=== PATIENT | male | born 1955 | race Caucasian/White ===

== ENCOUNTER 2017-08-10 13:19 | Inpatient (IN) | payer BC, OTHER ==
[2017-08-10] VITALS (13 sets, daily range): BP systolic 101–120; BP diastolic 59–75; PULSE 99–110; TEMP 36.5–37.9; O2SAT 95–100; Ht 180.3 cm; Wt 76.1 kg
[~2017-08-10] VITALS: Ht 180.3 cm; Wt 76.1 kg
[2017-08-10] MEDS ORDERED: SODIUM CHLORIDE 0.9% 1000ML 1,000 ML IV STA (13:51)
--- NOTE | 2017-08-10 13:53 | EMERGENCY ROOM VISIT NOTE ---
History Report prepared by Anna: Eamon Hernandez Under the Supervision of: Dr. Emory Hardy M.D. First contact with patient: 13:33 Chief Complaint: GI ASSESSMENT Stated Complaint: BLACK STOOL, VOMIT, WEAK,ACHES, LIGHT HEADED History of Present Illness The patient is a 62 year old male who presents to the Emergency Room with complaints of black/tarry stools and coffee ground emesis that the patient first noticed a couple of days ago. The patient denies any further abdominal pain, fevers, chills, or chest pains. The patient sees his Primary Care Physician regularly and has no diagnosed medical conditions. He is not on any anticoagulation therapy. The patient does drink a few times a week, and consumes 2-7 beers when he does. He has no history of Cirrhosis. 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 A total of ten systems were reviewed and were otherwise negative. Past Medical & Surgical Medical Problems: (1) Dyslipidemia (2) Osteoarthritis (3) Tobacco use disorder Surgical Problems: (1) S/P rotator cuff repair (2) S/P rotator cuff repair (3) Thumb amputation status Social History Problems: (1) Right shoulder injury Family History Diabetes mellitus Hypertension Social History Smoking Status: Current Every Day Smoker Housing Status: lives alone Occupation Status: unemployed Current/Historical Medications No Active Prescriptions or Reported Meds Allergies Coded Allergies: No Known Allergies (Unverified , 08/10/17) Physical Exam Vital Signs Date Time Temp Pulse Resp B/P (MAP) Pulse Ox O2 Delivery O2 Flow Rate FiO2 08/10/17 16:10 37.3 99 16 115/72 100 Room Air 08/10/17 16:10 37.3 99 16 115/72 100 08/10/17 15:45 37.4 101 16 106/65 100 08/10/17 15:15 101 20 106/66 100 Room Air 08/10/17 13:43 99 Room Air 08/10/17 13:43 105 08/10/17 13:28 36.8 112 16 80/54 98 Room Air Physical Exam GENERAL: Awake, alert, fatigued-appearing, in no distress HENT: Normocephalic, atraumatic. Patient has dry cracked mucous membranes. Black -tinged tongue. EYES: Normal conjunctiva. Sclera non-icteric. NECK: Supple. No nuchal rigidity. FROM. No JVD. RESPIRATORY: Clear to auscultation. CARDIAC: Sinus tachycardic rate, with normal rhythm. Extremities warm and well perfused. Pulses equal. ABDOMEN: Soft, non-distended. No tenderness to palpation. No rebound or guarding. No masses. RECTAL: Deferred. MUSCULOSKELETAL: Chest examination reveals no tenderness. The back is symmetrical on inspection without obvious abnormality. There is no CVA tenderness to palpation. No joint edema. LOWER EXTREMITIES: Calves are equal size bilaterally and non-tender. No edema. No discoloration. NEURO: Normal sensorium. No sensory or motor deficits noted. SKIN: No rash or jaundice noted. Medical Decision & Procedures ER Provider Diagnostic Interpretation: Radiology results as stated below per my review and radiologist interpretation: ABD/PELVIS IV CONTRAST ONLY CLINICAL HISTORY: 62 years-old Male presenting with melena, abd pain, diffuse abdominal pain, nausea and vomiting. TECHNIQUE: Multidetector CT of the abdomen and pelvis was performed after the administration of intravenous contrast. IV contrast: 119 mL of Optiray 320. A dose lowering technique was used consistent with the principles of ALARA (as low as reasonably achievable). COMPARISON: None. CT DOSE (mGy.cm): The estimated cumulative dose is 376.50 mGy.cm. FINDINGS: Scrap Crusher topogram: Unremarkable. Lung bases: Minimal basilar opacities, likely atelectasis. Calcified lingular nodule measuring 5 mm (series 3 image 51). Mitral annular calcification suggested. Normal heart size. Mild esophageal wall thickening may be present. No pericardial or pleural effusion. Liver: Normal morphology. No liver lesion. Patent hepatic vasculature. Biliary: No intrahepatic or extrahepatic biliary ductal dilatation. Normal gallbladder. Pancreas: Scattered coarse calcifications evident in the pancreatic head, body, and tail possibly implying chronic pancreatitis. No pancreatic ductal dilatation evident. No peripancreatic inflammatory change. Spleen: Normal. Adrenal glands: Round 1.7 cm left adrenal nodule, indeterminate on this contrast-enhanced CT. Right adrenal gland normal. Kidneys and ureters: Normal. No hydronephrosis. Bladder: Circumferential bladder wall thickening. No perivesicular inflammatory change. Pelvic organs: Prostate and seminal vesicles normal. Bowel: Normal appendix. No bowel obstruction. Trace hilar hernia. Esophageal wall thickening may be present. Peritoneal cavity: No free fluid or intraperitoneal gas. Lymph nodes: No enlarged lymph nodes in the abdomen or pelvis. Vasculature: Atherosclerosis of the normal caliber abdominal aorta. IVC patent. Abdominal wall: Normal. Musculoskeletal: Degenerative changes of the spine. Degenerative changes of the sacroiliac joints. Degenerative changes of the right hip may be present. IMPRESSION: 1. No CT evidence of gastrointestinal hemorrhage or gastrointestinal inflammatory change. 2. Findings suggest chronic pancreatitis. 3. Indeterminate 1.7 cm left adrenal nodule. 4. Circumferential bladder wall thickening could suggest cystitis. Correlate with urinalysis. Electronically signed by: Venkat Beaver M.D. 08/10/2017 3:15 PM Dictated Date/Time: 08/10/2017 3:08 PM CHEST ONE VIEW PORTABLE CLINICAL HISTORY: 62 years-old Male presenting with ABDOMINAL PAIN/GI. TECHNIQUE: Portable upright AP view of the chest was obtained. COMPARISON: 08/10/2017. FINDINGS: Atherosclerosis of the aortic arch. Cardiac silhouette normal in size. Lungs and pleural spaces clear. Degenerative changes of the thoracic spine. Upper abdomen normal. IMPRESSION: 1. No acute cardiopulmonary disease. Electronically signed by: Venkat Beaver M.D. 08/10/2017 3:05 PM Dictated Date/Time: 08/10/2017 3:05 PM Laboratory Results 08/10/17 13:50 Red Blood Count 1.78, Mean Corpuscular Volume 98.9, Mean Corpuscular Hemoglobin 33.7, Mean Corpuscular Hemoglobin Concent 34.1, Mean Platelet Volume 8.2, Neutrophils (%) (Auto) 79.9, Lymphocytes (%) (Auto) 13.3, Monocytes (%) (Auto) 5.2, Eosinophils (%) (Auto) 1.0, Basophils (%) (Auto) 0.2, Neutrophils # (Auto) 10.54, Lymphocytes # (Auto) 1.75, Monocytes # (Auto) 0.69, Eosinophils # (Auto) 0.13, Basophils # (Auto) 0.03 08/10/17 13:50 Test 08/10/17 13:50 08/10/17 14:01 08/10/17 14:02 08/10/17 14:14 White Blood Count 13.19 K/uL (4.8-10.8) Red Blood Count 1.78 M/uL (4.7-6.1) Hemoglobin 6.0 g/dL (14.0-18.0) Hematocrit 17.6 % (42-52) Mean Corpuscular Volume 98.9 fL (80-100) Mean Corpuscular Hemoglobin 33.7 pg (25-34) Mean Corpuscular Hemoglobin Concent 34.1 g/dl (32-36) Platelet Count 238 K/uL (130-400) Mean Platelet Volume 8.2 fL (7.4-10.4) Neutrophils (%) (Auto) 79.9 % Lymphocytes (%) (Auto) 13.3 % Monocytes (%) (Auto) 5.2 % Eosinophils (%) (Auto) 1.0 % Basophils (%) (Auto) 0.2 % Neutrophils # (Auto) 10.54 K/uL (1.4-6.5) Lymphocytes # (Auto) 1.75 K/uL (1.2-3.4) Monocytes # (Auto) 0.69 K/uL (0.11-0.59) Eosinophils # (Auto) 0.13 K/uL (0-0.5) Basophils # (Auto) 0.03 K/uL (0-0.2) RDW Standard Deviation 54.1 fL (36.4-46.3) RDW Coefficient of Variation 15.4 % (11.5-14.5) Immature Granulocyte % (Auto) 0.4 % Immature Granulocyte # (Auto) 0.05 K/uL (0.00-0.02) Polychromasia 1+ Prothrombin Time 10.2 SECONDS (9.0-12.0) Prothromb Time International Ratio 1.0 (0.9-1.1) Activated Partial Thromboplast Time 20.9 SECONDS (21.0-31.0) Partial Thromboplastin Ratio 0.8 Est Creatinine Clear Calc Drug Dose 92.4 ml/min Estimated GFR () 106.2 Estimated GFR (Non- 91.6 BUN/Creatinine Ratio 39.4 (10-20) Calcium Level 7.7 mg/dl (8.5-10.1) Magnesium Level 2.1 mg/dl (1.8-2.4) Total Bilirubin 0.3 mg/dl (0.2-1) Direct Bilirubin < 0.1 mg/dl (0-0.2) Aspartate Amino Transf (AST/SGOT) 11 U/L (15-37) Alanine Aminotransferase (ALT/SGPT) 19 U/L (12-78) Alkaline Phosphatase 42 U/L (45-117) Troponin I < 0.015 ng/ml (0-0.045) Total Protein 5.3 gm/dl (6.4-8.2) Albumin 2.6 gm/dl (3.4-5.0) Lipase 435 U/L (73-393) Bedside Lactic Acid Venous 1.83 mmol/L (0.90-1.70) Bedside Hemoglobin 5.4 g/dl (14.0-18.0) Bedside Hematocrit 16 % (42-52) Bedside Sodium 141 mEq/L (135-144) Bedside Potassium 4.2 mEq/L (3.3-5.0) Bedside Chloride 104 mEq/L (101-112) Bedside Total CO2 24 mEq/l (24-31) Anion Gap 18.0 mmol/L (16-25) Bedside Blood Urea Nitrogen 32 mg/dl (7-18) Bedside Creatinine 0.9 mg/dl (0.6-1.3) Bedside Glucose (other) 121 mg/dl (70-99) Bedside Ionized Calcium (Sasha) 1.15 mmol/l (1.12-1.32) Ethyl Alcohol mg/dL < 3.0 mg/dl (0-3) Test 08/10/17 15:36 Urine Color YELLOW Urine Appearance CLEAR (CLEAR) Urine pH 7.5 (4.5-7.5) Urine Specific [place] 1.039 (1.000-1.030) Urine Protein NEG (NEG) Urine Glucose (UA) NEG (NEG) Urine Ketones NEG (NEG) Urine Occult Blood NEG (NEG) Urine Nitrite NEG (NEG) Urine Bilirubin NEG (NEG) Urine Urobilinogen NEG (NEG) Urine Leukocyte Esterase NEG (NEG) Laboratory results reviewed by me Medications Administered Medications (Trade) Dose Ordered Sig/Katrin Route Start Time Stop Time Status Last Admin Dose Admin Sodium Chloride 1,000 ml @ 999 mls/hr Q1H1M STAT IV 08/10/17 13:51 08/10/17 14:51 DC 08/10/17 14:17 999 MLS/HR Pantoprazole Sodium 40 mg/ Syringe 10 ml @ 5 mls/min NOW ONCE IV 08/10/17 14:00 08/10/17 14:01 DC 08/10/17 14:27 5 MLS/MIN ECG Indication: vomiting Rate (beats per minute): 105 Rhythm: sinus tachycardia Findings: no acute ischemic change, other (Normal [place]) Change: Patient's electrocardiogram interpreted by me. ED Course 1340: The medical assisting program director evaluated this patient and presented the case to me. 1343: The patient was evaluated in room B11. A complete history and physical exam was performed. 1351: Ordered Sodium Chloride 1000 mL @ 999 mL/hr IV. 1400: Ordered Pantoprazole 10 mL @ 5 mL/min IV. 1541: I (medical assisting program director) discussed the case with Janel Novoa. She will evaluate the patient for further treatment. Medical Decision I reviewed the patient's past medical history, medications, and the nursing notes as described above. Differential diagnosis: Etiologies such as diverticulosis, perforation, AVM, coagulopathy, colitis, inflammatory bowel disease, malignancy, Jess-Butler tear, esophagitis, peptic ulcer disease, variceal bleed, gastritis, epistaxis, fissure, hemorrhoids, as well as others were entertained. The patient is 62 y/o gentleman who presents to the emergency department with several days of black stools as well as episode of coffee ground emesis per HPI. On arrival the patient is fatigue appearing, in NAD, tachycardic 110s, Hypotensive SBP 80s-90s. BP further improved to 100s-110s with IVF. On exam has black-tinged tongue. Per resident exam rectal exam with brown stool that is guaiac positive. Hbg 6.0. BUN 34. INR wnl. No evidence of cirrhosis. Patient consented for blood and ordered for 2 units prbcs. Given IV protonix. CXR negative for free air. CT with ?chronic pancreatitis. Lipase 400s. Resident d/w Jr Owens PA-C, who will admit the patient for further management. I discussed the case with the resident physician, examined the patient, and agree with the findings and plan as documented in the residents note unless otherwise clarified here by me. Medication Reconcilliation Current Medication List: was personally reviewed by me Blood Pressure Screening Patient's blood pressure: Low blood pressure Referred to Hospitalist Consults Time Called: [phone] Consulting Physician: Janel Norris PA-C Returned Call: [phone] I (medical assisting program director) discussed the case with Janel Norris PA-C. She will evaluate the patient for further treatment. Impression Primary Impression: Upper GI bleed Additional Impression: Severe anemia Critical Care I have personally spent greater than 45 minutes of critical care time in the direct management of this patient. This includes bedside care, interpretation of diagnostic studies, and testing, discussion with consultants, patient, and family members, and other required patient management activities. This 45 minutes is in excess of all separately billable procedures. Scribe Attestation The scribe's documentation has been prepared under my direction and personally reviewed by me in its entirety. I confirm that the note above accurately reflects all work, treatment, procedures, and medical decision making performed by me. Departure Information Dispostion Being Evaluated By Hospitalist Prescriptions No Active Prescriptions or Reported Meds Referrals Nahun Don PA-C (PCP) Patient Instructions [facility] Problem Qualifiers
[2017-08-10] MEDS ORDERED: OPTIRAY 320 IV PRN (14:00)
[2017-08-10] MEDS ORDERED: PANTOprazole INJ 40 MG in SYRINGE 0 ML IV ONE (14:00)
[2017-08-10 14:15] LABS: ISTAT CREATININE 0.9 mg/dl (0.6-1.3); ISTAT IONIZED CALCIUM 1.15 mmol/l (1.12-1.32); ISTAT POTASSIUM 4.2 mEq/L (3.3-5.0)
[2017-08-10 14:15] LABS: PTT PATIENT 20.9 SECONDS (21.0-31.0)
[2017-08-10 14:26] LABS: HEMATOCRIT 17.6 % (42-52); MEAN CELL VOLUME 98.9 fL (80-100); MEAN CORPUSCULAR HEMOGLOBIN 33.7 pg (25-34); MEAN CORPUSCULAR HGB CONC 34.1 g/dl (32-36); MEAN PLATELET VOLUME 8.2 fL (7.4-10.4); PLATELET COUNT 238 K/uL (130-400); RED CELL DISTRIBUTION WIDTH CV 15.4 % (11.5-14.5); RED CELL DISTRIBUTION WIDTH SD 54.1 fL (36.4-46.3); WHITE BLOOD COUNT 13.19 K/uL (4.8-10.8)
[2017-08-10 14:27] LABS: ALBUMIN 2.6 gm/dl (3.4-5.0); ALT/SGPT 19 U/L (12-78); BLOOD UREA NITROGEN 34 mg/dl (7-18); CALCIUM 7.7 mg/dl (8.5-10.1); CARBON DIOXIDE 24 mmol/L (21-32); CREATININE 0.86 mg/dl (0.60-1.40); GLUCOSE 116 mg/dl (70-99); LIPASE 435 U/L (73-393); POTASSIUM 4.1 mmol/L (3.5-5.1); SODIUM 140 mmol/L (136-145)
[2017-08-10 14:28] LABS: BASO % 0.2 %; BASO ABS # 0.03 K/uL (0-0.2); EOS ABS # 0.13 K/uL (0-0.5); IG# 0.05 K/uL (0.00-0.02); LYMPH % 13.3 %; LYMPH ABS # 1.75 K/uL (1.2-3.4); MONO % 5.2 %; MONO ABS # 0.69 K/uL (0.11-0.59); NEUT % 79.9 %; NEUT ABS # 10.54 K/uL (1.4-6.5)
[2017-08-10 14:30] LABS: ALKALINE PHOSPHATASE 42 U/L (45-117); AST/SGOT 11 U/L (15-37); TOTAL PROTEIN 5.3 gm/dl (6.4-8.2)
--- NOTE | 2017-08-10 14:42 | EMERGENCY ROOM VISIT NOTE ---
History First contact with patient: 13:34 Chief Complaint: GI ASSESSMENT Stated Complaint: BLACK STOOL, VOMIT, WEAK,ACHES, LIGHT HEADED Nursing Triage Summary: C/o back pain for 3 days, light headeaded, fatigue. Patient started vomitting last night and emesis was black and states stools were also black, unsure of how long stools were black. History of Present Illness The patient is a previously healthy 62 year old male who presents to the Emergency Room with complaints of black stool and emesis and acute on chronic back pain. Patient reports multiple days of dark colored stool and as of last night dark colored emesis. He also reports being abnormally cold, clammy in addition to fatigue, lightheadedness. He denies abdominal pain ,fevers, chest pain, shortness of breath fevers. He is not on anticoagulation. Patient has no relevant medical history. He denies any anticoagulation usage. Patient hs history of chronic back pain for several years. He reports acute worsening 3 days ago. Pain is intermittent worsening with movement, minimal pain at rest. He denies radicular symptoms. Patient took Aleve yesterday for pain. Review of Systems Pt denies headache, change in vision, fevers, chest pain, shortness of breath, nausea, vomiting, diarrhea, pain with urination Otherwise refer to HPI Past Medical/Surgical History Medical Problems: (1) Dyslipidemia (2) Right shoulder injury Surgical Problems: (1) S/P rotator cuff repair (2) Thumb amputation status Family History Diabetes mellitus Hypertension Social History Smoking Status: Current Every Day Smoker Housing Status: lives alone Occupation Status: unemployed Current/Historical Medications No Active Prescriptions or Reported Meds Physical Exam Vital Signs Date Time Temp Pulse Resp B/P (MAP) Pulse Ox O2 Delivery O2 Flow Rate FiO2 08/10/17 16:10 37.3 99 16 115/72 100 Room Air 08/10/17 16:10 37.3 99 16 115/72 100 08/10/17 15:45 37.4 101 16 106/65 100 08/10/17 15:15 101 20 106/66 100 Room Air 08/10/17 13:43 99 Room Air 08/10/17 13:43 105 08/10/17 13:28 36.8 112 16 80/54 98 Room Air Physical Exam GENERAL: alert, well appearing, well nourished, no distress, non-toxic EYE EXAM: conjunctival pallor, PERRL and EOM's grossly intact OROPHARYNX: no exudate, no erythema, lips, buccal mucosa, black tongue and mucous membranes are moist NECK: supple, no nuchal rigidity, no adenopathy, non-tender LUNGS: Clear to auscultation. Normal chest wall mechanics HEART: no murmurs, S1 normal and S2 normal ABDOMEN: abdomen soft, non-specific lower abdominal tenderness to palpation normo-active bowel sounds, no masses, no rebound or guarding. BACK: Back is symmetrical on inspection and there is no deformity, no midline tenderness, suzanne paravertebral muscle tenderness in the lumbar region SKIN: no rashes and no bruising UPPER EXTREMITIES: pallor in palmar creases. LOWER EXTREMITIES: No pitting edema. NEURO EXAM: Normal sensorium, cranial nerves II-XII grossly intact, normal speech, Medical Decision & Procedures Laboratory Results 08/10/17 13:50 Red Blood Count 1.78, Mean Corpuscular Volume 98.9, Mean Corpuscular Hemoglobin 33.7, Mean Corpuscular Hemoglobin Concent 34.1, Mean Platelet Volume 8.2, Neutrophils (%) (Auto) 79.9, Lymphocytes (%) (Auto) 13.3, Monocytes (%) (Auto) 5.2, Eosinophils (%) (Auto) 1.0, Basophils (%) (Auto) 0.2, Neutrophils # (Auto) 10.54, Lymphocytes # (Auto) 1.75, Monocytes # (Auto) 0.69, Eosinophils # (Auto) 0.13, Basophils # (Auto) 0.03 08/10/17 13:50 Test 08/10/17 13:50 08/10/17 14:01 08/10/17 14:02 08/10/17 14:14 White Blood Count 13.19 K/uL (4.8-10.8) Red Blood Count 1.78 M/uL (4.7-6.1) Hemoglobin 6.0 g/dL (14.0-18.0) Hematocrit 17.6 % (42-52) Mean Corpuscular Volume 98.9 fL (80-100) Mean Corpuscular Hemoglobin 33.7 pg (25-34) Mean Corpuscular Hemoglobin Concent 34.1 g/dl (32-36) Platelet Count 238 K/uL (130-400) Mean Platelet Volume 8.2 fL (7.4-10.4) Neutrophils (%) (Auto) 79.9 % Lymphocytes (%) (Auto) 13.3 % Monocytes (%) (Auto) 5.2 % Eosinophils (%) (Auto) 1.0 % Basophils (%) (Auto) 0.2 % Neutrophils # (Auto) 10.54 K/uL (1.4-6.5) Lymphocytes # (Auto) 1.75 K/uL (1.2-3.4) Monocytes # (Auto) 0.69 K/uL (0.11-0.59) Eosinophils # (Auto) 0.13 K/uL (0-0.5) Basophils # (Auto) 0.03 K/uL (0-0.2) RDW Standard Deviation 54.1 fL (36.4-46.3) RDW Coefficient of Variation 15.4 % (11.5-14.5) Immature Granulocyte % (Auto) 0.4 % Immature Granulocyte # (Auto) 0.05 K/uL (0.00-0.02) Polychromasia 1+ Prothrombin Time 10.2 SECONDS (9.0-12.0) Prothromb Time International Ratio 1.0 (0.9-1.1) Activated Partial Thromboplast Time 20.9 SECONDS (21.0-31.0) Partial Thromboplastin Ratio 0.8 Est Creatinine Clear Calc Drug Dose 92.4 ml/min Estimated GFR () 106.2 Estimated GFR (Non- 91.6 BUN/Creatinine Ratio 39.4 (10-20) Calcium Level 7.7 mg/dl (8.5-10.1) Magnesium Level 2.1 mg/dl (1.8-2.4) Total Bilirubin 0.3 mg/dl (0.2-1) Direct Bilirubin < 0.1 mg/dl (0-0.2) Aspartate Amino Transf (AST/SGOT) 11 U/L (15-37) Alanine Aminotransferase (ALT/SGPT) 19 U/L (12-78) Alkaline Phosphatase 42 U/L (45-117) Troponin I < 0.015 ng/ml (0-0.045) Total Protein 5.3 gm/dl (6.4-8.2) Albumin 2.6 gm/dl (3.4-5.0) Lipase 435 U/L (73-393) Bedside Lactic Acid Venous 1.83 mmol/L (0.90-1.70) Bedside Hemoglobin 5.4 g/dl (14.0-18.0) Bedside Hematocrit 16 % (42-52) Bedside Sodium 141 mEq/L (135-144) Bedside Potassium 4.2 mEq/L (3.3-5.0) Bedside Chloride 104 mEq/L (101-112) Bedside Total CO2 24 mEq/l (24-31) Anion Gap 18.0 mmol/L (16-25) Bedside Blood Urea Nitrogen 32 mg/dl (7-18) Bedside Creatinine 0.9 mg/dl (0.6-1.3) Bedside Glucose (other) 121 mg/dl (70-99) Bedside Ionized Calcium (Sasha) 1.15 mmol/l (1.12-1.32) Ethyl Alcohol mg/dL < 3.0 mg/dl (0-3) Test 08/10/17 15:36 Urine Color YELLOW Urine Appearance CLEAR (CLEAR) Urine pH 7.5 (4.5-7.5) Urine Specific [place] 1.039 (1.000-1.030) Urine Protein NEG (NEG) Urine Glucose (UA) NEG (NEG) Urine Ketones NEG (NEG) Urine Occult Blood NEG (NEG) Urine Nitrite NEG (NEG) Urine Bilirubin NEG (NEG) Urine Urobilinogen NEG (NEG) Urine Leukocyte Esterase NEG (NEG) Laboratory results per my review. Medications Administered Medications (Trade) Dose Ordered Sig/Katrin Route Start Time Stop Time Status Last Admin Dose Admin Sodium Chloride 1,000 ml @ 999 mls/hr Q1H1M STAT IV 08/10/17 13:51 08/10/17 14:51 DC 08/10/17 14:17 999 MLS/HR Pantoprazole Sodium 40 mg/ Syringe 10 ml @ 5 mls/min NOW ONCE IV 08/10/17 14:00 08/10/17 14:01 DC 08/10/17 14:27 5 MLS/MIN Medical Decision 62 yo M previously healthy male presenting with black stools for multiple days , black emesis x1 day in addition to acute on chronicn back pain x3 days found to be tachycardic with BP of 80/54. CBC H/H: 6/16.7, nml platelet ct, normocytic, Wht Ct 13.19 CMP: unremarkable, Lipase: 427 Troponin: negative UA pending Ethyl Alcohol neg Positive Heme occult Given 1 L NS Ordered 2 Units Prbc's Given black stool, emesis, tachycardia/hypotension, abdominal tenderness on exam, positive Heme occult with, Anemia secondary to GI bleed is highly likely . CT abdomen had findings suggestive of chronic pancreatitis but no findings consistent was hemorrhage. 1 L NS was given and 2 units prbc's ordered as above. Upon reevaluation, the patient is BP is improved, HR improved. . I discussed the findings and the plan with the patient. He expresses agreement and understanding. I spoke with Janel Martinez from [facility]. Patient will be evaluated for further management. Head Trauma GCS Score: 15 Blood Pressure Screening Patient's blood pressure: Low blood pressure Impression Primary Impression: GI bleed Additional Impression: Anemia Departure Information Dispostion Admitted as an inpatient Prescriptions No Active Prescriptions or Reported Meds Referrals Nahun Don PA-C (PCP) Patient Instructions My [facility] Resident Tracking Resident Involvement: Resident Care Provided Care Provided: Adult Hospital Medicine Problem Qualifiers
--- NOTE | 2017-08-10 15:07 | DIAGNOSTIC IMAGING REPORT ---
CHEST ONE VIEW PORTABLE CLINICAL HISTORY: 62 years-old Male presenting with ABDOMINAL PAIN/GI. TECHNIQUE: Portable upright AP view of the chest was obtained. COMPARISON: 08/10/2017. FINDINGS: Atherosclerosis of the aortic arch. Cardiac silhouette normal in size. Lungs and pleural spaces clear. Degenerative changes of the thoracic spine. Upper abdomen normal. IMPRESSION: 1. No acute cardiopulmonary disease. Electronically signed by: Venkat Beaver M.D. 08/10/2017 3:05 PM Dictated Date/Time: 08/10/2017 3:05 PM
--- NOTE | 2017-08-10 15:16 | DIAGNOSTIC IMAGING REPORT ---
ABD/PELVIS IV CONTRAST ONLY CLINICAL HISTORY: 62 years-old Male presenting with melena, abd pain, diffuse abdominal pain, nausea and vomiting. TECHNIQUE: Multidetector CT of the abdomen and pelvis was performed after the administration of intravenous contrast. IV contrast: 119 mL of Optiray 320. A dose lowering technique was used consistent with the principles of ALARA (as low as reasonably achievable). COMPARISON: None. CT DOSE (mGy.cm): The estimated cumulative dose is 376.50 mGy.cm. FINDINGS: Staff Respiratory Therapist topogram: Unremarkable. Lung bases: Minimal basilar opacities, likely atelectasis. Calcified lingular nodule measuring 5 mm (series 3 image 51). Mitral annular calcification suggested. Normal heart size. Mild esophageal wall thickening may be present. No pericardial or pleural effusion. Liver: Normal morphology. No liver lesion. Patent hepatic vasculature. Biliary: No intrahepatic or extrahepatic biliary ductal dilatation. Normal gallbladder. Pancreas: Scattered coarse calcifications evident in the pancreatic head, body, and tail possibly implying chronic pancreatitis. No pancreatic ductal dilatation evident. No peripancreatic inflammatory change. Spleen: Normal. Adrenal glands: Round 1.7 cm left adrenal nodule, indeterminate on this contrast-enhanced CT. Right adrenal gland normal. Kidneys and ureters: Normal. No hydronephrosis. Bladder: Circumferential bladder wall thickening. No perivesicular inflammatory change. Pelvic organs: Prostate and seminal vesicles normal. Bowel: Normal appendix. No bowel obstruction. Trace hilar hernia. Esophageal wall thickening may be present. Peritoneal cavity: No free fluid or intraperitoneal gas. Lymph nodes: No enlarged lymph nodes in the abdomen or pelvis. Vasculature: Atherosclerosis of the normal caliber abdominal aorta. IVC patent. Abdominal wall: Normal. Musculoskeletal: Degenerative changes of the spine. Degenerative changes of the sacroiliac joints. Degenerative changes of the right hip may be present. IMPRESSION: 1. No CT evidence of gastrointestinal hemorrhage or gastrointestinal inflammatory change. 2. Findings suggest chronic pancreatitis. 3. Indeterminate 1.7 cm left adrenal nodule. 4. Circumferential bladder wall thickening could suggest cystitis. Correlate with urinalysis. Electronically signed by: Venkat Beaver M.D. 08/10/2017 3:15 PM Dictated Date/Time: 08/10/2017 3:08 PM
[2017-08-10] MEDS ORDERED: ACETAMINOPHEN 325 MG TAB PO PRN (16:30)
[2017-08-10] MEDS ORDERED: ONDANSETRON INJ 2 MG/ML 2 ML VIAL IV PRN (16:30)
--- NOTE | 2017-08-10 17:41 | History and Physical ---
History & Physical Date of Service Aug 10, 2017. History & Physical This is a 62 year old male with a PMH of tobacco use disorder, colonic polyps, long-term NSAID use - presents with melena and coffee ground emesis. He states that for the past three days he has not been feeling well; symptoms including lethargy and weakness. States that he noted dark, tarry stool for the past two days. On the night of 08/09, he had an episode of coffee ground emesis. Archer lethargic and weak and so he came to the ER. Found to have significant hypovolemia, hypotension and anemia. Was given a bolus of fluid; currently being transfused his first unit of pRBCs. He feels much better currently. 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 He has had colonoscopies in the past, which showed polyps. Was scheduled to have another colonoscopy later this month (2017) Surgical History: R rotator cuff repair ~ 2014 Social History: smokes 1/2 PPD drinks about 12-14 cans of beer weekly, but does not drink daily VITALS: Last Vital Signs Documentation Date Time Temp Pulse Resp B/P (MAP) Pulse Ox O2 Delivery O2 Flow Rate FiO2 08/10/17 17:11 101 18 131/77 99 08/10/17 16:50 37.2 GEN: no acute distress HEENT: NC/AT CVS: +S1, S2, tachycardic LUNGS: CTA b/l, no wheezing ABD: soft, NT/ND, normoactive bowel sounds EXT: no edema NEURO: no focal deficits Plan: Anemia secondary to Acute Upper GI bleed likely secondary to chronic NSAID use; states he has been using Aleve daily for 3 years. Plan for now is to continue clear liquid diet. PPI drip transfuse two units pRBCs recheck H/H q6 hours NPO after midnight for possible EGD in AM Leukocytosis likely secondary to dehydration will give one time dose of Rocephin, monitor WBC count, vitals, etc. no clear source of infection Mild Acute Pancreatitis mild pancreatitis possibly secondary to EtOH use lipase mildly elevated, clear liquid diet Tobacco use Disorder smokes about 1/2PPD cut down from over 1PPD will try to quit on his own and motivated to do so, does not want a nicotine patch DVT ppx SCDs FULL CODE
[2017-08-10] MEDS: PANTOprazole INJ 40 MG in DEXTROSE 5% 100ML IV SCH ×2 (17:52→21:30)
[2017-08-10] MEDS ORDERED: CEFTRIAXONE SOD INJ 1 GM in DEXTROSE 5% ADD-VANTAGE 50ML 50 ML IV ONE (18:00)
[2017-08-10] MEDS ORDERED: LORAZEPAM 2 MG/ML 1 ML VIAL IV PRN (18:15)
--- NOTE | 2017-08-10 18:39 | History and Physical ---
History & Physical Date & Time of Service: Aug 10, 2017 at 18:34 Chief Complaint: Severe Anemia, Upper Gi Bleed Primary Care Physician: Daniel Corona D.O. History of Present Illness Source: patient, spouse (at bedside), hospital records This is a 62yo M with a PMH of tobacco use disorder and osteoarthritis who presents with black tarry stool x 3 days. Patient was in normal state of health until a few days ago, when he started to have multiple episodes of black, tarry stools each day. Also began to feel lightheaded, SOB and generally weak. Overnight, patient had nausea and a single episode of coffee ground emesis. Endorses using ibuprofen daily for years to treat OA pain. Smokes 1/2 ppd. Drinks 2-7 beers 4 nights/week. Denies history of GI bleeds. Has a history of colonic polyps on previous colonoscopy. Scheduled for a repeat colonoscopy later this month. Denies fever, chills, headache, visual changes, URI symptoms, chest pain, abdominal pain, constipation, weakness of extremities, difficulty ambulating or LE swelling. In ER, was found to be hypotensive at 80/54 and tachycardic to 112. After receiving 1L NSS, BP improved to 106/66 and HR to 101. Hgb of 6. Past Medical/Surgical History Medical Problems: (1) Dyslipidemia Status: Chronic (2) Osteoarthritis Status: Chronic (3) Tobacco use disorder Status: Chronic Surgical Problems: (1) S/P rotator cuff repair Status: Resolved (2) S/P rotator cuff repair Status: Chronic (3) Thumb amputation status Status: Resolved Social History Problems: (1) Right shoulder injury Status: Resolved Family History Diabetes mellitus Hypertension Social History Smoking Status: Current Every Day Smoker Marital Status: Housing status: lives with significant other Multi-Drug Resistant Organisms History of MDRO: No Allergies Coded Allergies: No Known Allergies (Unverified , 08/10/17) Home Medications No Active Prescriptions or Reported Meds Review of Systems Ten systems reviewed and negative except as noted in the HPI. Physical Exam Vital Signs Date Time Temp Pulse Resp B/P (MAP) Pulse Ox O2 Delivery O2 Flow Rate FiO2 08/10/17 17:43 37.4 104 16 114/73 (87) 97 Room Air 08/10/17 17:11 101 18 131/77 99 08/10/17 16:52 95 Room Air 08/10/17 16:50 37.2 110 20 107/73 95 08/10/17 16:10 37.3 99 16 115/72 100 Room Air 08/10/17 16:10 37.3 99 16 115/72 100 08/10/17 15:45 37.4 101 16 106/65 100 08/10/17 15:15 101 20 106/66 100 Room Air 08/10/17 13:43 99 Room Air 08/10/17 13:43 105 08/10/17 13:28 36.8 112 16 80/54 98 Room Air General Appearance: WD/WN, no apparent distress Head: normocephalic, atraumatic Eyes: normal inspection, PERRL, sclerae normal ENT: normal ENT inspection, hearing grossly normal, pharynx normal (dry mucous membranes) Neck: supple, thyroid normal, trachea midline Respiratory/Chest: chest non-tender, lungs clear, normal breath sounds, no respiratory distress, no accessory muscle use Cardiovascular: no murmur, normal peripheral pulses, + tachycardia Abdomen/GI: non tender, soft, no organomegaly Back: normal inspection, no CVA tenderness Extremities/Musculoskelatal: normal inspection, no calf tenderness, no pedal edema Neurologic/Psych: no motor/sensory deficits, alert, normal mood/affect, oriented x 3 Skin: warm/dry, + pallor Diagnostics Laboratory Results Results Past 24 Hours Test 08/10/17 13:50 08/10/17 14:01 08/10/17 14:02 08/10/17 14:14 Range/Units White Blood Count 13.19 4.8-10.8 K/uL Red Blood Count 1.78 4.7-6.1 M/uL Hemoglobin 6.0 14.0-18.0 g/dL Hematocrit 17.6 42-52 % Mean Corpuscular Volume 98.9 80-100 fL Mean Corpuscular Hemoglobin 33.7 25-34 pg Mean Corpuscular Hemoglobin Concent 34.1 32-36 g/dl Platelet Count 238 130-400 K/uL Mean Platelet Volume 8.2 7.4-10.4 fL Neutrophils (%) (Auto) 79.9 % Lymphocytes (%) (Auto) 13.3 % Monocytes (%) (Auto) 5.2 % Eosinophils (%) (Auto) 1.0 % Basophils (%) (Auto) 0.2 % Neutrophils # (Auto) 10.54 1.4-6.5 K/uL Lymphocytes # (Auto) 1.75 1.2-3.4 K/uL Monocytes # (Auto) 0.69 0.11-0.59 K/uL Eosinophils # (Auto) 0.13 0-0.5 K/uL Basophils # (Auto) 0.03 0-0.2 K/uL RDW Standard Deviation 54.1 36.4-46.3 fL RDW Coefficient of Variation 15.4 11.5-14.5 % Immature Granulocyte % (Auto) 0.4 % Immature Granulocyte # (Auto) 0.05 0.00-0.02 K/uL Polychromasia 1+ Prothrombin Time 10.2 9.0-12.0 SECONDS Prothromb Time International Ratio 1.0 0.9-1.1 Activated Partial Thromboplast Time 20.9 21.0-31.0 SECONDS Partial Thromboplastin Ratio 0.8 Sodium Level 140 136-145 mmol/L Potassium Level 4.1 3.5-5.1 mmol/L Chloride Level 109 98-107 mmol/L Carbon Dioxide Level 24 21-32 mmol/L Anion Gap 6.0 18.0 16-25 mmol/L Blood Urea Nitrogen 34 7-18 mg/dl Creatinine 0.86 0.60-1.40 mg/dl Est Creatinine Clear Calc Drug Dose 92.4 ml/min Estimated GFR () 106.2 Estimated GFR (Non- 91.6 BUN/Creatinine Ratio 39.4 10-20 Random Glucose 116 70-99 mg/dl Calcium Level 7.7 8.5-10.1 mg/dl Total Bilirubin 0.3 0.2-1 mg/dl Direct Bilirubin < 0.1 0-0.2 mg/dl Aspartate Amino Transf (AST/SGOT) 11 15-37 U/L Alanine Aminotransferase (ALT/SGPT) 19 12-78 U/L Alkaline Phosphatase 42 45-117 U/L Troponin I < 0.015 0-0.045 ng/ml Total Protein 5.3 6.4-8.2 gm/dl Albumin 2.6 3.4-5.0 gm/dl Lipase 435 73-393 U/L Bedside Lactic Acid Venous 1.83 0.90-1.70 mmol/L Bedside Hemoglobin 5.4 14.0-18.0 g/dl Bedside Hematocrit 16 42-52 % Bedside Sodium 141 135-144 mEq/L Bedside Potassium 4.2 3.3-5.0 mEq/L Bedside Chloride 104 101-112 mEq/L Bedside Total CO2 24 24-31 mEq/l Bedside Blood Urea Nitrogen 32 7-18 mg/dl Bedside Creatinine 0.9 0.6-1.3 mg/dl Bedside Glucose (other) 121 70-99 mg/dl Bedside Ionized Calcium (Sasha) 1.15 1.12-1.32 mmol/l Ethyl Alcohol mg/dL < 3.0 0-3 mg/dl Test 08/10/17 15:36 Range/Units Urine Color YELLOW Urine Appearance CLEAR CLEAR Urine pH 7.5 4.5-7.5 Urine Specific [place] 1.039 1.000-1.030 Urine Protein NEG NEG Urine Glucose (UA) NEG NEG Urine Ketones NEG NEG Urine Occult Blood NEG NEG Urine Nitrite NEG NEG Urine Bilirubin NEG NEG Urine Urobilinogen NEG NEG Urine Leukocyte Esterase NEG NEG Diagnostic Radiology CT abd/pelvis: IMPRESSION: 1. No CT evidence of gastrointestinal hemorrhage or gastrointestinal inflammatory change. 2. Findings suggest chronic pancreatitis. 3. Indeterminate 1.7 cm left adrenal nodule. 4. Circumferential bladder wall thickening could suggest cystitis. Correlate with urinalysis. CXR: IMPRESSION: 1. No acute cardiopulmonary disease. EKG Sinus tachycardia @ 105bpm. Impression Assessment and Plan This is a 62yo M with a PMH of tobacco use disorder and osteoarthritis who presents with black tarry stool x 3 days. 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 Plan to return home once medically stable. Patient seen in collaboration with Dr. Love. Please see addendum. 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 Y/N: Yes Risk Level: Moderate Given or contraindicated: T.E.D. Stockings, Contraindicated
[2017-08-11] VITALS (12 sets, daily range): BP systolic 102–124; BP diastolic 63–77; PULSE 81–99; TEMP 36.7–37.7; O2SAT 95–99
[2017-08-11 01:46] LABS: HEMATOCRIT 20.8 % (42-52)
[2017-08-11] MEDS: PANTOprazole INJ 40 MG in DEXTROSE 5% 100ML IV SCH ×4 (02:40→21:10)
[2017-08-11 06:03] LABS: PTT PATIENT 22.8 SECONDS (21.0-31.0)
[2017-08-11 06:21] LABS: HEMATOCRIT 21.2 % (42-52); HEMOGLOBIN 7.1 g/dL (14.0-18.0); MEAN CELL VOLUME 94.2 fL (80-100); MEAN CORPUSCULAR HEMOGLOBIN 31.6 pg (25-34); MEAN CORPUSCULAR HGB CONC 33.5 g/dl (32-36); MEAN PLATELET VOLUME 8.6 fL (7.4-10.4); PLATELET COUNT 188 K/uL (130-400); RED CELL DISTRIBUTION WIDTH CV 16.6 % (11.5-14.5); RED CELL DISTRIBUTION WIDTH SD 55.2 fL (36.4-46.3)
[2017-08-11 06:29] LABS: ALBUMIN 2.3 gm/dl (3.4-5.0); CALCIUM 7.2 mg/dl (8.5-10.1); CREATININE 0.91 mg/dl (0.60-1.40); POTASSIUM 3.7 mmol/L (3.5-5.1); TOTAL PROTEIN 4.7 gm/dl (6.4-8.2)
[2017-08-11] MEDS: LIDODERM (LIDOCAINE) PATCH 5% TD SCH (08:06)
--- NOTE | 2017-08-11 09:11 | Clinical Documentation Query ---
CLINICAL DOCUMENTATION QUERY 62 year old male who presents to the Emergency Room with complaints of black/tarry stools and coffee ground emesis. In your clinical opinion is this patient being managed for: ( ) Acute blood loss anemia in setting of GI bleed. ( ) Not Agree ( ) Other explanation of clinical findings (Please Explain) ( ) Unable to determine (Please Define) ( ) Need to Discuss The medical record reflects the following clinical findings, treatment, and risk factors. Clinical Indicators: GI bleed, Hgb 5.4, Hct 16 Treatment: 2 units of PRBC's Risk Factors: Age, GI bleed, Please clarify and document your clinical opinion in the progress notes and discharge summary. Terms such as "probable", "suspected", "likely", "questionable", "possible", or "still to be ruled out" are acceptable. IF IN AGREEMENT, YOU MUST DOCUMENT ABOVE DIAGNOSTIC STATEMENT IN DAILY PROGRESS NOTES AND DISCHARGE SUMMARY. This document is not part of the patient's record. Thank You, Rich Foster, OLEG [phone]
--- NOTE | 2017-08-11 09:46 | Gastrointestinal Consultation ---
Gastrointestinal Consultation Date of Consultation: Aug 11, 2017 Attending Physician: Dr. Love Consulting Physician: Dr. Chacko Reason for Consultation: Melena, anemia History of Present Illness Patient is a 62 year old male patient of Dr. Corona in [place], with a hx of chronic lower back pain, smoking. He presented to the ED yesterday for "feeling awful and for vomiting black liquid," occurring once late on Monday. He describes feeling lightheaded and having black, formed stools for a "couple days." He thinks he initial felt weak on this Monday - so 3 days ago. In the ED, he was mildly hypotensive (104/68) and mildly tachycardic (105). Hb on arrival was 6.0. BUN on arrival was 34, today 16. In the ED, a CT suggested chronic pancreatitis and he admitted to drinking 2-7 alcoholic beverages a few times/week. Since admission, he received 2 units of RBCs and this morning Hb is 9.0. He tells me that he has taken Naproxen twice daily for a year or so and he takes an 81mg ASA daily to prevent heart disease and "a lot of times takes an Yulissa [place] for indigestion." INR is 1.0. He is awake, cooperative and oriented though seems groggy. He denies any recent abdominal pain. Most recent BM was around 10 PM and was black, formed. He is NPO and on a Protonix drip. Most recent BP 109/68, HR 94. He is currently reading the newspaper. 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 He is missing the tip of his left thumb as a horse bit it off years ago. Past Medical/Surgical History Medical Problems: (1) Dyslipidemia Status: Chronic (2) GI bleed Status: Acute (3) Severe anemia Status: Acute (4) Upper GI bleed Status: Acute Past Medical History: Smoker Chronic lower back pain Past Surgical History: Rotator cuff surgery Colonoscopy x [address] Tolliver. Polypectomies. Family History Diabetes mellitus Hypertension Social History Smoking Status: Current Every Day Smoker Marital Status: Housing Status: lives alone Allergies Coded Allergies: No Known Allergies (Unverified , 08/10/17) Current Medications Home Meds and Scripts Medications Dose Route/Sig Max Daily Dose Days Date Category No Active Prescriptions or Reported Medications Rx Review of Systems Constitutional: No fever, No chills, No sweats, No weight loss, No weakness Eyes: No eye pain, No redness ENT: No sore throat, No trouble swallowing, No pain on swallowing Respiratory: No cough, No wheezing, No shortness of breath, No dyspnea on exertion Cardiac: No chest pain, No edema, No palpitations Abdomen: + see HPI, + nausea, + vomiting, + GI bleeding, No pain, No diarrhea, No constipation, No dysphagia, No odynophagia, No acolic stools, No jaundice, No dark urine, No problem reported Neuro: No memory loss, No weakness, No numbness/tingling, No vertigo, No balance problems Psych: No depression symptoms, No anxiety, No insomnia Heme: No abnormal bleeding/bruising, No night sweats Endo: No excessive thirst, No excessive urination Skin: No rash, No itch, No new/changing skin lesions, No jaundice Physical Exam Date Time Temp Pulse Resp B/P (MAP) Pulse Ox O2 Delivery O2 Flow Rate FiO2 08/11/17 08:00 Room Air 08/11/17 07:43 37.0 94 18 109/68 (82) 96 08/11/17 03:17 Room Air 08/11/17 03:17 37.3 99 20 102/65 (77) 96 Room Air 08/10/17 23:57 Room Air 08/10/17 23:35 37.8 105 18 109/70 100 08/10/17 22:17 37.9 105 18 104/68 98 08/10/17 21:28 37.8 102 16 109/70 100 08/10/17 21:00 37.5 106 18 120/75 100 08/10/17 20:45 36.5 109 18 113/69 100 08/10/17 20:40 37.8 105 18 101/59 100 08/10/17 20:35 37.3 105 18 107/68 100 08/10/17 20:21 36.9 106 18 115/71 100 08/10/17 19:30 Room Air 08/10/17 17:43 37.4 104 16 114/73 (87) 97 Room Air 08/10/17 17:11 101 18 131/77 99 08/10/17 16:52 95 Room Air 08/10/17 16:50 37.2 110 20 107/73 95 08/10/17 16:10 37.3 99 16 115/72 100 Room Air 08/10/17 16:10 37.3 99 16 115/72 100 08/10/17 15:45 37.4 101 16 106/65 100 08/10/17 15:15 101 20 106/66 100 Room Air 08/10/17 13:43 99 Room Air 08/10/17 13:43 105 08/10/17 13:28 36.8 112 16 80/54 98 Room Air General Appearance: no apparent distress, + pertinent finding Eyes: normal inspection, EOMI Neck: supple, no adenopathy, thyroid normal Respiratory/Chest: chest non-tender, lungs clear, normal breath sounds, no accessory muscle use Cardiovascular: regular rate, rhythm, no JVD, no murmur Abdomen: normal bowel sounds, non tender, soft, no organomegaly Extremities: normal inspection, no pedal edema, normal capillary refill, + pertinent finding (missing the tip of his left thumb) Neurologic/Psych: alert, normal mood/affect, oriented x 3 Skin: normal color, no jaundice, warm/dry, no rash Laboratory Results Last 24 Hours Test 08/10/17 13:50 08/10/17 14:01 08/10/17 14:02 08/10/17 14:14 White Blood Count 13.19 K/uL Red Blood Count 1.78 M/uL Hemoglobin 6.0 g/dL Hematocrit 17.6 % Mean Corpuscular Volume 98.9 fL Mean Corpuscular Hemoglobin 33.7 pg Mean Corpuscular Hemoglobin Concent 34.1 g/dl Platelet Count 238 K/uL Mean Platelet Volume 8.2 fL Neutrophils (%) (Auto) 79.9 % Lymphocytes (%) (Auto) 13.3 % Monocytes (%) (Auto) 5.2 % Eosinophils (%) (Auto) 1.0 % Basophils (%) (Auto) 0.2 % Neutrophils # (Auto) 10.54 K/uL Lymphocytes # (Auto) 1.75 K/uL Monocytes # (Auto) 0.69 K/uL Eosinophils # (Auto) 0.13 K/uL Basophils # (Auto) 0.03 K/uL RDW Standard Deviation 54.1 fL RDW Coefficient of Variation 15.4 % Immature Granulocyte % (Auto) 0.4 % Immature Granulocyte # (Auto) 0.05 K/uL Polychromasia 1+ Prothrombin Time 10.2 SECONDS Prothromb Time International Ratio 1.0 Activated Partial Thromboplast Time 20.9 SECONDS Partial Thromboplastin Ratio 0.8 Sodium Level 140 mmol/L Potassium Level 4.1 mmol/L Chloride Level 109 mmol/L Carbon Dioxide Level 24 mmol/L Anion Gap 6.0 mmol/L 18.0 mmol/L Blood Urea Nitrogen 34 mg/dl Creatinine 0.86 mg/dl Est Creatinine Clear Calc Drug Dose 92.4 ml/min Estimated GFR () 106.2 Estimated GFR (Non- 91.6 BUN/Creatinine Ratio 39.4 Random Glucose 116 mg/dl Calcium Level 7.7 mg/dl Magnesium Level 2.1 mg/dl Total Bilirubin 0.3 mg/dl Direct Bilirubin < 0.1 mg/dl Aspartate Amino Transf (AST/SGOT) 11 U/L Alanine Aminotransferase (ALT/SGPT) 19 U/L Alkaline Phosphatase 42 U/L Troponin I < 0.015 ng/ml Total Protein 5.3 gm/dl Albumin 2.6 gm/dl Lipase 435 U/L Bedside Lactic Acid Venous 1.83 mmol/L Bedside Hemoglobin 5.4 g/dl Bedside Hematocrit 16 % Bedside Sodium 141 mEq/L Bedside Potassium 4.2 mEq/L Bedside Chloride 104 mEq/L Bedside Total CO2 24 mEq/l Bedside Blood Urea Nitrogen 32 mg/dl Bedside Creatinine 0.9 mg/dl Bedside Glucose (other) 121 mg/dl Bedside Ionized Calcium ([place]) 1.15 mmol/l Ethyl Alcohol mg/dL < 3.0 mg/dl Test 08/10/17 15:36 08/11/17 01:13 08/11/17 05:22 Urine Color YELLOW Urine Appearance CLEAR Urine pH 7.5 Urine Specific [place] 1.039 Urine Protein NEG Urine Glucose (UA) NEG Urine Ketones NEG Urine Occult Blood NEG Urine Nitrite NEG Urine Bilirubin NEG Urine Urobilinogen NEG Urine Leukocyte Esterase NEG Hemoglobin 7.0 g/dL 7.1 g/dL Hematocrit 20.8 % 21.2 % White Blood Count 11.70 K/uL Red Blood Count 2.25 M/uL Mean Corpuscular Volume 94.2 fL Mean Corpuscular Hemoglobin 31.6 pg Mean Corpuscular Hemoglobin Concent 33.5 g/dl RDW Standard Deviation 55.2 fL RDW Coefficient of Variation 16.6 % Platelet Count 188 K/uL Mean Platelet Volume 8.6 fL Prothrombin Time 10.5 SECONDS Prothromb Time International Ratio 1.0 Activated Partial Thromboplast Time 22.8 SECONDS Partial Thromboplastin Ratio 0.9 Sodium Level 139 mmol/L Potassium Level 3.7 mmol/L Chloride Level 111 mmol/L Carbon Dioxide Level 23 mmol/L Anion Gap 5.0 mmol/L Blood Urea Nitrogen 16 mg/dl Creatinine 0.91 mg/dl Est Creatinine Clear Calc Drug Dose 87.3 ml/min Estimated GFR () 102.9 Estimated GFR (Non- 88.8 BUN/Creatinine Ratio 17.7 Random Glucose 90 mg/dl Calcium Level 7.2 mg/dl Total Bilirubin 0.6 mg/dl Aspartate Amino Transf (AST/SGOT) 12 U/L Alanine Aminotransferase (ALT/SGPT) 15 U/L Alkaline Phosphatase 38 U/L Total Protein 4.7 gm/dl Albumin 2.3 gm/dl Globulin 2.4 gm/dl Albumin/Globulin Ratio 1.0 Lipase 340 U/L CT IMPRESSION: 1. No CT evidence of gastrointestinal hemorrhage or gastrointestinal inflammatory change. 2. Findings suggest chronic pancreatitis. 3. Indeterminate 1.7 cm left adrenal nodule. 4. Circumferential bladder wall thickening could suggest cystitis. Correlate with urinalysis. Impression Patient is a 62 year old male with melena, black emesis and anemia. These symptoms and the slightly high BUN are suggestive of an upper GI bleed from ulcer disease. Plan 1. Agree with Protonix drip. 2. Keep NPO. 3. He is added to the endoscopy schedule for an EGD as soon as possible, likely later this morning. I have seen and examined the patient with MICHAEL Wellington whose note reflects our findings and plan. Abd pain, melena, anemia. Hgb 6. Transfused. Hemodynamically stable. Continue PPI gtt. EGD today.
[2017-08-11] MEDS ORDERED: PROPOFOL IV EMULSION 10 MG/ML 20 ML VIAL IV ONE (10:47)
[2017-08-11] MEDS ORDERED: LIDOCAINE HCL 2% 2 ML VIAL (20MG/ML) ONE (10:47)
--- NOTE | 2017-08-11 11:00 | GI REPORT ---
Procedure Date: 08/11/2017 10:35 AM Procedure: Upper GI endoscopy Indications: Epigastric abdominal pain, Acute post hemorrhagic anemia, Heartburn, Coffee-ground emesis, Melena Medicines: Propofol per Anesthesia Complications: No immediate complications. Estimated blood loss: Minimal. Estimated Blood Loss: Estimated blood loss: none. Procedure: Pre-Anesthesia Assessment: - Prior to the procedure, a History and Physical was performed, and patient medications, allergies and sensitivities were reviewed. The patient's tolerance of previous anesthesia was reviewed. - The risks and benefits of the procedure and the sedation options and risks were discussed with the patient. All questions were answered and informed consent was obtained. - Patient identification and proposed procedure were verified prior to the procedure by the physician and the nurse. The procedure was verified in the pre-procedure area in the procedure room. - Mental Status Examination: alert and oriented. Airway Examination: normal oropharyngeal airway and neck mobility. Respiratory Examination: clear to auscultation. CV Examination: normal. Abdominal Examination: bowel sounds present, abdomen soft and non-tender, no masses or organomegaly noted. - ASA Grade Assessment: III - A patient with severe systemic disease. After obtaining informed consent, the endoscope was passed under direct vision. Throughout the procedure, the patient's blood pressure, pulse, and oxygen saturations were monitored continuously. The On-site loaner was introduced through the mouth, and advanced to the second part of duodenum. The upper GI endoscopy was accomplished without difficulty. The patient tolerated the procedure well. Findings: Few esophageal ulcers with no bleeding were found in the middle third of the esophagus. There were esophageal mucosal changes consistent with long-segment Jung's esophagus present in the lower third of the esophagus. The maximum longitudinal extent of these mucosal changes was 10 cm in length. The entire examined stomach was normal. Biopsies were taken with a cold forceps for Helicobacter pylori testing. Verification of patient identification for the specimen was done by the physician and nurse using the patient's name and date. Estimated blood loss was minimal. One non-bleeding superficial duodenal ulcer was found in the duodenal bulb. The second portion of the duodenum was normal. Impression: - Non-bleeding esophageal ulcers. 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 - Hiatal hernia. - Normal stomach. Biopsied. - One non-bleeding duodenal ulcer. - Normal second portion of the duodenum. Recommendation: - Continue PPI gtt for the next 36 hours then transition to high dose oral PPI BID. - Carafate suspension 4 times a day. - Repeat EGD in 4-6 weeks as an outpatient to assess for healing and to biopsy the esophagus (not done today secondary to ulcerations). - Clear liquids today. - [facility] patient to [facility] for ongoing care. Patricia Chacko D.O. Patricia Chacko, 08/11/2017 11:00:10 AM This report has been signed electronically. Note Initiated On: 08/11/2017 10:35 AM I attest to the content of the Intraoperative Record and orders documented therein, exceptions below
--- NOTE | 2017-08-11 11:08 | Anesthesiology Progress Note ---
Anesthesia Post Op Note Date & Time Aug 11, 2017 at 11:08 Vital Signs Pain Intensity: 0 Vital Signs Past 12 Hours Date Time Temp Pulse Resp B/P (MAP) Pulse Ox O2 Delivery O2 Flow Rate FiO2 08/11/17 11:04 84 16 115/69 (84) 97 Room Air 08/11/17 10:49 92 16 106/56 (73) 98 Room Air 08/11/17 10:24 37.1 86 20 110/71 (84) 95 Room Air 08/11/17 08:00 Room Air 08/11/17 07:43 37.0 94 18 109/68 (82) 96 08/11/17 03:17 Room Air 08/11/17 03:17 37.3 99 20 102/65 (77) 96 Room Air 08/10/17 23:57 Room Air 08/10/17 23:35 37.8 105 18 109/70 100 Notes Mental Status: alert / awake / arousable, participated in evaluation Pt Amnestic to Procedure: Yes Nausea / Vomiting: adequately controlled Pain: adequately controlled Airway Patency, RR, SpO2: stable & adequate BP & HR: stable & adequate Hydration State: stable & adequate Anesthetic Complications: no major complications apparent
[2017-08-11] MEDS: SUCRALFATE 1 GM/10 ML UDC PO SCH ×3 (13:46→21:08)
--- NOTE | 2017-08-11 17:37 | Progress Note ---
Internal Med Progress Note Date of Service: Aug 11, 2017. 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 Not in distress ENT-Normal hearing Neck-no neck masses Lungs-cta b/l no wheezing or crackles Heart-S1 and S2 heard regular rate and rhythm, no murmurs Abdomen-soft bowel sounds present no discomfort no distension Extremities-no edema no erythema Neuro-alert and awake moves extremities Lab data as noted below. ASSESSMENT & PLAN: This is a 62yo M with a PMH of tobacco use disorder and osteoarthritis who presents with black tarry stool x 3 days. Severe anemia 2/2 Upper GI bleed: presented with Melena x 3 days, coffee ground emesis x 1 day hb 6.0 on presentation s/p two units prbc hb 7.1 today s/p egd-non bleeding oesophageal ulcers, one non bleeding duodenal ulcer, Jung oesophagus on ppi drip will transfuse 2 more units appreciate GI inputs f/u labs. Leukocytosis: improving will f/u Mild acute pancreatitis: Chronic pancreatitis on CT abd/pelvis In setting of etoh use 2-7 beers 4x/week Alcohol withdrawal protocol Lipase of 435 no complaints started on clears will monitor. 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 Lidoderm patch and PRN Tylenol Tobacco use disorder: Decreased from 1 ppd to 1/2 ppd smoking cessation DVT Ppx: SCDs Code status: FULL PCP: Florencia CHAVEZ ([facility] in [place]) Dispo: monitor in tele Vital Signs: Date Time Temp Pulse Resp B/P (MAP) Pulse Ox O2 Delivery O2 Flow Rate FiO2 08/11/17 16:04 36.7 90 20 107/69 (82) 96 Room Air 08/11/17 13:48 36.8 93 20 117/63 (81) 99 Room Air 08/11/17 12:58 Room Air 08/11/17 12:32 36.9 85 18 107/64 (78) 96 Room Air 08/11/17 11:34 37.0 99 18 115/63 (80) 95 08/11/17 11:19 93 18 113/64 (80) 98 Room Air 08/11/17 11:04 84 16 115/69 (84) 97 Room Air 08/11/17 10:49 92 16 106/56 (73) 98 Room Air 08/11/17 10:24 37.1 86 20 110/71 (84) 95 Room Air 08/11/17 08:00 Room Air 08/11/17 07:43 37.0 94 18 109/68 (82) 96 08/11/17 03:17 Room Air 08/11/17 03:17 37.3 99 20 102/65 (77) 96 Room Air 08/10/17 23:57 Room Air 08/10/17 23:35 37.8 105 18 109/70 100 08/10/17 22:17 37.9 105 18 104/68 98 08/10/17 21:28 37.8 102 16 109/70 100 08/10/17 21:00 37.5 106 18 120/75 100 08/10/17 20:45 36.5 109 18 113/69 100 08/10/17 20:40 37.8 105 18 101/59 100 08/10/17 20:35 37.3 105 18 107/68 100 08/10/17 20:21 36.9 106 18 115/71 100 08/10/17 19:30 Room Air 08/10/17 17:43 37.4 104 16 114/73 (87) 97 Room Air Lab Results: Results Past 24 Hours Test 08/11/17 01:13 08/11/17 05:22 Range/Units Hemoglobin 7.0 7.1 14.0-18.0 g/dL Hematocrit 20.8 21.2 42-52 % White Blood Count 11.70 4.8-10.8 K/uL Red Blood Count 2.25 4.7-6.1 M/uL Mean Corpuscular Volume 94.2 80-100 fL Mean Corpuscular Hemoglobin 31.6 25-34 pg Mean Corpuscular Hemoglobin Concent 33.5 32-36 g/dl RDW Standard Deviation 55.2 36.4-46.3 fL RDW Coefficient of Variation 16.6 11.5-14.5 % Platelet Count 188 130-400 K/uL Mean Platelet Volume 8.6 7.4-10.4 fL Prothrombin Time 10.5 9.0-12.0 SECONDS Prothromb Time International Ratio 1.0 0.9-1.1 Activated Partial Thromboplast Time 22.8 21.0-31.0 SECONDS Partial Thromboplastin Ratio 0.9 Sodium Level 139 136-145 mmol/L Potassium Level 3.7 3.5-5.1 mmol/L Chloride Level 111 98-107 mmol/L Carbon Dioxide Level 23 21-32 mmol/L Anion Gap 5.0 3-11 mmol/L Blood Urea Nitrogen 16 7-18 mg/dl Creatinine 0.91 0.60-1.40 mg/dl Est Creatinine Clear Calc Drug Dose 87.3 ml/min Estimated GFR () 102.9 Estimated GFR (Non- 88.8 BUN/Creatinine Ratio 17.7 10-20 Random Glucose 90 70-99 mg/dl Calcium Level 7.2 8.5-10.1 mg/dl Total Bilirubin 0.6 0.2-1 mg/dl Aspartate Amino Transf (AST/SGOT) 12 15-37 U/L Alanine Aminotransferase (ALT/SGPT) 15 12-78 U/L Alkaline Phosphatase 38 45-117 U/L Total Protein 4.7 6.4-8.2 gm/dl Albumin 2.3 3.4-5.0 gm/dl Globulin 2.4 2.5-4.0 gm/dl Albumin/Globulin Ratio 1.0 0.9-2 Lipase 340 73-393 U/L
[2017-08-11] MEDS ORDERED: ACETAMINOPHEN 325 MG TAB PO SCH (17:45)
[2017-08-11] MEDS ORDERED: FUROSEMIDE INJ 20 MG in SYRINGE 0 ML IV SCH (18:00)
[2017-08-12] VITALS (10 sets, daily range): BP systolic 101–121; BP diastolic 63–73; PULSE 79–90; TEMP 36.7–37.4; O2SAT 96–98
[2017-08-12] MEDS: PANTOprazole INJ 40 MG in DEXTROSE 5% 100ML IV SCH ×5 (02:22→22:56)
[2017-08-12 07:39] LABS: BASO % 0.3 %; BASO ABS # 0.03 K/uL (0-0.2); EOS % 1.8 %; EOS ABS # 0.16 K/uL (0-0.5); HEMATOCRIT 26.9 % (42-52); IG# 0.04 K/uL (0.00-0.02); LYMPH % 19.4 %; LYMPH ABS # 1.77 K/uL (1.2-3.4); MEAN CELL VOLUME 89.7 fL (80-100); MEAN CORPUSCULAR HGB CONC 33.5 g/dl (32-36); MEAN PLATELET VOLUME 8.9 fL (7.4-10.4); MONO % 9.4 %; MONO ABS # 0.86 K/uL (0.11-0.59); NEUT % 68.7 %; NEUT ABS # 6.28 K/uL (1.4-6.5); PLATELET COUNT 181 K/uL (130-400); RED CELL DISTRIBUTION WIDTH CV 20.3 % (11.5-14.5); RED CELL DISTRIBUTION WIDTH SD 65.2 fL (36.4-46.3); WHITE BLOOD COUNT 9.14 K/uL (4.8-10.8)
[2017-08-12 08:11] LABS: CALCIUM 7.7 mg/dl (8.5-10.1); CREATININE 0.92 mg/dl (0.60-1.40); POTASSIUM 3.5 mmol/L (3.5-5.1)
[2017-08-12] MEDS: LIDODERM (LIDOCAINE) PATCH 5% TD SCH (09:26)
[2017-08-12] MEDS: SUCRALFATE 1 GM/10 ML UDC PO SCH ×4 (09:26→21:22)
--- NOTE | 2017-08-12 19:04 | Progress Note ---
Internal Med Progress Note Date of Service: Aug 12, 2017. Provider Documentation: SUBJECTIVE: resting comfortably request to advance the diet tolerated soft diet afebrile no more bleeding no nausea or abdominal pain OBJECTIVE: Vital Signs-as noted below Exam: General-alert and oriented. Not in distress ENT-Normal hearing Neck-no neck masses Lungs-cta b/l no wheezing or crackles Heart-S1 and S2 heard regular rate and rhythm, no murmurs Abdomen-soft bowel sounds present no discomfort no distension Extremities-no edema no erythema Neuro-alert and awake moves extremities Lab data as noted below. ASSESSMENT & PLAN: This is a 62yo M with a PMH of tobacco use disorder and osteoarthritis who presents with black tarry stool x 3 days. Severe anemia 2/2 Upper GI bleed: presented with Melena x 3 days, coffee ground emesis x 1 day hb 6.0 on presentation s/p two units prbc hb 7.1 today s/p egd-non bleeding oesophageal ulcers, one non bleeding duodenal ulcer, Jung oesophagus on ppi drip total s/p 4units transfused appreciate GI inputs hb 9.0 today f/u labs. Leukocytosis: improving will f/u Mild acute pancreatitis: Chronic pancreatitis on CT abd/pelvis In setting of etoh use 2-7 beers 4x/week Alcohol withdrawal protocol Lipase of 435 no complaints tolerating soft diet will monitor. 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9 90 16 106/72 2/3/18 04:03 Room Air 08/12/17 03:20 37.2 86 16 107/69 98 08/12/17 02:19 37.2 86 20 101/66 98 0.0 08/12/17 01:49 37.0 79 18 104/66 96 0.0 08/12/17 01:15 37.4 83 16 101/63 08/12/17 00:04 Room Air 08/11/17 23:57 37.0 93 18 117/75 98 0.0 08/11/17 23:03 37.4 81 18 112/75 97 0.0 08/11/17 22:30 37.7 89 16 103/65 08/11/17 22:00 37.6 96 16 106/68 08/11/17 21:45 37.6 92 18 118/74 08/11/17 21:27 37.7 86 18 124/77 08/11/17 20:19 Room Air Lab Results: Results Past 24 Hours Test 08/12/17 06:50 Range/Units White Blood Count 9.14 4.8-10.8 K/uL Red Blood Count 3.00 4.7-6.1 M/uL Hemoglobin 9.0 14.0-18.0 g/dL Hematocrit 26.9 42-52 % Mean Corpuscular Volume 89.7 80-100 fL Mean Corpuscular Hemoglobin 30.0 25-34 pg Mean Corpuscular Hemoglobin Concent 33.5 32-36 g/dl Platelet Count 181 130-400 K/uL Mean Platelet Volume 8.9 7.4-10.4 fL Neutrophils (%) (Auto) 68.7 % Lymphocytes (%) (Auto) 19.4 % Monocytes (%) (Auto) 9.4 % Eosinophils (%) (Auto) 1.8 % Basophils (%) (Auto) 0.3 % Neutrophils # (Auto) 6.28 1.4-6.5 K/uL Lymphocytes # (Auto) 1.77 1.2-3.4 K/uL Monocytes # (Auto) 0.86 0.11-0.59 K/uL Eosinophils # (Auto) 0.16 0-0.5 K/uL Basophils # (Auto) 0.03 0-0.2 K/uL RDW Standard Deviation 65.2 36.4-46.3 fL RDW Coefficient of Variation 20.3 11.5-14.5 % Immature Granulocyte % (Auto) 0.4 % Immature Granulocyte # (Auto) 0.04 0.00-0.02 K/uL Anisocytosis PRESENT Sodium Level 141 136-145 mmol/L Potassium Level 3.5 3.5-5.1 mmol/L Chloride Level 108 98-107 mmol/L Carbon Dioxide Level 26 21-32 mmol/L Anion Gap 6.0 3-11 mmol/L Blood Urea Nitrogen 12 7-18 mg/dl Creatinine 0.92 0.60-1.40 mg/dl Est Creatinine Clear Calc Drug Dose 86.4 ml/min Estimated GFR () 101.5 Estimated GFR (Non- 87.6 BUN/Creatinine Ratio 12.9 10-20 Random Glucose 101 70-99 mg/dl Calcium Level 7.7 8.5-10.1 mg/dl Magnesium Level 2.1 1.8-2.4 mg/dl
[2017-08-13] MEDS: PANTOprazole INJ 40 MG in DEXTROSE 5% 100ML IV SCH ×2 (03:34→08:51)
[2017-08-13 04:00] VITALS: BP 117/77; PULSE 82; TEMP 36.8; O2SAT 96
[2017-08-13 06:50] LABS: BASO % 0.4 %; BASO ABS # 0.03 K/uL (0-0.2); EOS ABS # 0.23 K/uL (0-0.5); HEMOGLOBIN 9.1 g/dL (14.0-18.0); IG# 0.02 K/uL (0.00-0.02); LYMPH % 26.9 %; LYMPH ABS # 2.08 K/uL (1.2-3.4); MEAN CORPUSCULAR HEMOGLOBIN 30.3 pg (25-34); MEAN CORPUSCULAR HGB CONC 33.7 g/dl (32-36); MEAN PLATELET VOLUME 8.7 fL (7.4-10.4); MONO % 9.6 %; MONO ABS # 0.74 K/uL (0.11-0.59); NEUT % 59.8 %; NEUT ABS # 4.64 K/uL (1.4-6.5); PLATELET COUNT 184 K/uL (130-400); WHITE BLOOD COUNT 7.74 K/uL (4.8-10.8)
[2017-08-13 06:57] VITALS: BP 115/76; PULSE 80; TEMP 36.8; O2SAT 96
[2017-08-13 07:19] LABS: CREATININE 0.91 mg/dl (0.60-1.40); POTASSIUM 3.8 mmol/L (3.5-5.1)
[2017-08-13 07:30] VITALS: O2SAT 96
[2017-08-13] MEDS: LIDODERM (LIDOCAINE) PATCH 5% TD SCH (08:52)
[2017-08-13] MEDS: SUCRALFATE 1 GM/10 ML UDC PO SCH ×2 (08:52→12:17)
--- NOTE | 2017-08-13 09:49 | Gastroenterology Progress Note ---
Gastroenterology Progress Note H/H remains stable. No evidence of re-bleeding. Recommend: Advance diet. It will be important that he refrain from NSAIDs once discharged. High dose oral PPI BID. Carafate LIQUID 4 times a day for the next 10 days. Repeat EGD to be arranged. Please call with questions.
[2017-08-13] MEDS ORDERED: CRFUDL PO (11:05)
[2017-08-13] MEDS ORDERED: PANT40TA PO (11:05)
--- NOTE | 2017-08-13 11:15 | Discharge Instructions ---
Discharge Instructions Date of Service Aug 13, 2017. Admission Reason for Admission: Severe Anemia, Upper Gi Bleed Discharge Discharge Diagnosis / Problem: severe anemia, upper gi bleed, oesophageal and duodenal ulcer Discharge Goals Goal(s): Decrease discomfort Activity Recommendations Activity Limitations: resume your previous activity . Instructions / Follow-Up Instructions / Follow-Up FOLLOWUP WITH GI IN 4-6 WEEKS FOR REPEAT ENDOSCOPY. ([address], [place] [id number]. PH [phone]) FOLLOWUP WITH FAMILY DOCTOR IN ONE WEEK. AVOID ALCOHOL. SPICY FOODS, CAFFEINE, CHOCOLATES AVOID IBUPROFEN, ALEVE, MOTRIN OR ANY OTHER NSAID'S. Current Hospital Diet Patient's current hospital diet: Regular Diet Discharge Diet Recommended Diet: Regular Diet Procedures Procedures Performed: EGD with biopsy Pending Studies Studies pending at discharge: no Medical Emergencies . Who to Call and When: Medical Emergencies: If at any time you feel your situation is an emergency, please call 911 immediately. . Non-Emergent Contact Non-Emergency issues call your: Primary Care Provider . . "Provider Documentation" section prepared by Phillip Torrez. . VTE Core Measure Inpt VTE Proph given/why not?: T.E.D. Stockings, Contraindicated
[2017-08-13 11:21] VITALS: BP 103/67; PULSE 67; TEMP 36.8; O2SAT 97
[2017-08-13 11:49] VITALS: BP 103/67; PULSE 67; TEMP 36.8; O2SAT 97
--- NOTE | 2017-08-13 16:31 | Progress Note ---
Internal Med Progress Note Date of Service: Aug 13, 2017. Provider Documentation: SUBJECTIVE: resting comfortably tolerating soft diet afebrile no bleeding no nausea or abdominal pain wants to go home OBJECTIVE: Vital Signs-as noted below Exam: General-alert and oriented. Not in distress ENT-Normal hearing Neck-no neck masses Lungs-cta b/l no wheezing or crackles Heart-S1 and S2 heard regular rate and rhythm, no murmurs Abdomen-soft bowel sounds present no discomfort no distension Extremities-no edema no erythema Neuro-alert and awake moves extremities Lab data as noted below. ASSESSMENT & PLAN: This is a 62yo M with a PMH of tobacco use disorder and osteoarthritis who presents with black tarry stool x 3 days. Severe anemia 2/2 Upper GI bleed: presented with Melena x 3 days, coffee ground emesis x 1 day hb 6.0 on presentation s/p two units prbc hb 7.1 s/p egd-non bleeding oesophageal ulcers, one non bleeding duodenal ulcer, Jung oesophagus on ppi drip total s/p 4units transfused appreciate GI inputs hb 9.1 today f/u labs with pcp f/u GI for repeat egd in 4-6 weeks discharged on Carafate qid for 10 days and Protonix 40mg bid. Leukocytosis: improving resolved Mild acute pancreatitis?: Chronic pancreatitis on CT abd/pelvis In setting of etoh use 2-7 beers 4x/week Alcohol withdrawal protocol Lipase of 435 no complaints tolerating soft diet will monitor. 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 Lidoderm patch and PRN Tylenol Tobacco use disorder: Decreased from 1 ppd to 1/2 ppd smoking cessation Discharged home Vital Signs: Date Time Temp Pulse Resp B/P (MAP) Pulse Ox O2 Delivery O2 Flow Rate FiO2 08/13/17 11:49 36.8 67 18 97 Room Air 08/13/17 11:21 36.8 67 18 103/67 (79) 97 08/13/17 07:30 96 Room Air 08/13/17 06:57 36.8 80 20 115/76 (89) 96 Room Air 08/13/17 04:00 36.8 82 20 117/77 (90) 96 Room Air 08/13/17 03:56 Room Air 08/12/17 23:57 36.8 86 20 116/66 (83) 97 Room Air 08/12/17 23:56 Room Air 08/12/17 20:38 37.1 82 18 121/73 (89) 97 Room Air 08/12/17 19:41 Room Air Lab Results: Results Past 24 Hours Test 08/13/17 06:31 Range/Units White Blood Count 7.74 4.8-10.8 K/uL Red Blood Count 3.00 4.7-6.1 M/uL Hemoglobin 9.1 14.0-18.0 g/dL Hematocrit 27.0 42-52 % Mean Corpuscular Volume 90.0 80-100 fL Mean Corpuscular Hemoglobin 30.3 25-34 pg Mean Corpuscular Hemoglobin Concent 33.7 32-36 g/dl Platelet Count 184 130-400 K/uL Mean Platelet Volume 8.7 7.4-10.4 fL Neutrophils (%) (Auto) 59.8 % Lymphocytes (%) (Auto) 26.9 % Monocytes (%) (Auto) 9.6 % Eosinophils (%) (Auto) 3.0 % Basophils (%) (Auto) 0.4 % Neutrophils # (Auto) 4.64 1.4-6.5 K/uL Lymphocytes # (Auto) 2.08 1.2-3.4 K/uL Monocytes # (Auto) 0.74 0.11-0.59 K/uL Eosinophils # (Auto) 0.23 0-0.5 K/uL Basophils # (Auto) 0.03 0-0.2 K/uL RDW Standard Deviation 64.0 36.4-46.3 fL RDW Coefficient of Variation 20.0 11.5-14.5 % Immature Granulocyte % (Auto) 0.3 % Immature Granulocyte # (Auto) 0.02 0.00-0.02 K/uL Large Platelets 1+ Polychromasia 1+ Anisocytosis PRESENT Sodium Level 140 136-145 mmol/L Potassium Level 3.8 3.5-5.1 mmol/L Chloride Level 109 98-107 mmol/L Carbon Dioxide Level 24 21-32 mmol/L Anion Gap 7.0 3-11 mmol/L Blood Urea Nitrogen 12 7-18 mg/dl Creatinine 0.91 0.60-1.40 mg/dl Est Creatinine Clear Calc Drug Dose 87.3 ml/min Estimated GFR () 102.9 Estimated GFR (Non- 88.8 BUN/Creatinine Ratio 12.9 10-20 Random Glucose 105 70-99 mg/dl Calcium Level 8.0 8.5-10.1 mg/dl Magnesium Level 2.2 1.8-2.4 mg/dl
--- NOTE | 2017-08-13 16:34 | Discharge Summary ---
Discharge Summary Date of Service Aug 13, 2017. Discharge Summary Admission Date: Aug 10, 2017 at 16:24 Discharge Date: Aug 13, 2017 Discharge Disposition: Home Principal Diagnosis: ANEMIA UPPER GI BLEED Secondary Diagnoses/Problems: (1) Dyslipidemia Status: Chronic (2) Osteoarthritis Status: Chronic (3) Tobacco use disorder Status: Chronic Procedures: CXR: 1. No acute cardiopulmonary disease. CT ABD/PELVIS: 1. No CT evidence of gastrointestinal hemorrhage or gastrointestinal inflammatory change. 2. Findings suggest chronic pancreatitis. 3. Indeterminate 1.7 cm left adrenal nodule. 4. Circumferential bladder wall thickening could suggest cystitis. Correlate with urinalysis. S/P EGD Consultations: GI Medication Reconciliation New Medications: Pantoprazole (Protonix) 40 Mg Tab 40 MG PO BID for 30 Days, #60 TAB 2 Refills Sucralfate (Sucralfate) 1 Gm/10 Ml Susp 1 GM PO QID for 10 Days Admission Information HPI (per Admitting provider): This is a 62yo M with a PMH of tobacco use disorder and osteoarthritis who presents with black tarry stool x 3 days. Patient was in normal state of health until a few days ago, when he started to have multiple episodes of black, tarry stools each day. Also began to feel lightheaded, SOB and generally weak. Overnight, patient had nausea and a single episode of coffee ground emesis. Endorses using ibuprofen daily for years to treat OA pain. Smokes 1/2 ppd. Drinks 2-7 beers 4 nights/week. Denies history of GI bleeds. Has a history of colonic polyps on previous colonoscopy. Scheduled for a repeat colonoscopy later this month. Denies fever, chills, headache, visual changes, URI symptoms, chest pain, abdominal pain, constipation, weakness of extremities, difficulty ambulating or LE swelling. In ER, was found to be hypotensive at 80/54 and tachycardic to 112. After receiving 1L NSS, BP improved to 106/66 and HR to 101. Hgb of 6. Physical Exam (per Admitting): General Appearance: WD/WN, no apparent distress Head: normocephalic, atraumatic Eyes: normal inspection, PERRL, sclerae normal ENT: normal ENT inspection, hearing grossly normal, pharynx normal (dry mucous membranes) Neck: supple, thyroid normal, trachea midline Respiratory/Chest: chest non-tender, lungs clear, normal breath sounds, no respiratory distress, no accessory muscle use Cardiovascular: no murmur, normal peripheral pulses, + tachycardia Abdomen/GI: non tender, soft, no organomegaly Back: normal inspection, no CVA tenderness Extremities/Musculoskelatal: normal inspection, no calf tenderness, no pedal edema Neurologic/Psych: no motor/sensory deficits, alert, normal mood/affect, oriented x 3 Skin: warm/dry, + pallor Hospital Course This is a 62yo M with a PMH of tobacco use disorder and osteoarthritis who presents with black tarry stool x 3 days. Severe anemia 2/2 Upper GI bleed: presented with Melena x 3 days, coffee ground emesis x 1 day hb 6.0 on presentation s/p two units prbc hb 7.1 s/p egd-non bleeding oesophageal ulcers, one non bleeding duodenal ulcer, Jung oesophagus on ppi drip total s/p 4units transfused appreciate GI inputs hb 9.1 today f/u labs with pcp f/u GI for repeat egd in 4-6 weeks discharged on Carafate qid for 10 days and Protonix 40mg bid. Leukocytosis: improving resolved Mild acute pancreatitis?: Chronic pancreatitis on CT abd/pelvis In setting of etoh use 2-7 beers 4x/week Alcohol withdrawal protocol Lipase of 435 no complaints tolerating soft diet will monitor. 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 Discharge Instructions Discharge Instructions Date of Service Aug 13, 2017. Admission Reason for Admission: Severe Anemia, Upper Gi Bleed Discharge Discharge Diagnosis / Problem: severe anemia, upper gi bleed, oesophageal and duodenal ulcer Discharge Goals Goal(s): Decrease discomfort Activity Recommendations Activity Limitations: resume your previous activity . Instructions / Follow-Up Instructions / Follow-Up FOLLOWUP WITH GI IN 4-6 WEEKS FOR REPEAT ENDOSCOPY. ([address], [place] [id number]. PH [phone]) FOLLOWUP WITH FAMILY DOCTOR IN ONE WEEK. AVOID ALCOHOL. SPICY FOODS, CAFFEINE, CHOCOLATES AVOID IBUPROFEN, ALEVE, MOTRIN OR ANY OTHER NSAID'S. Current Hospital Diet Patient's current hospital diet: Regular Diet Discharge Diet Recommended Diet: Regular Diet Procedures Procedures Performed: EGD with biopsy Pending Studies Studies pending at discharge: no Medical Emergencies . Who to Call and When: Medical Emergencies: If at any time you feel your situation is an emergency, please call 911 immediately. . Non-Emergent Contact Non-Emergency issues call your: Primary Care Provider . . "Provider Documentation" section prepared by Phillip Torrez. . VTE Core Measure Inpt VTE Proph given/why not?: T.E.D. Stockings, Contraindicated
--- NOTE | 2017-08-15 09:50 | EDITING REQUIRED CODING QUERY ---
ANEMIA To promote full compliance with coding requirements relating to patient care, physician participation is requested in all cases of saw tailer uncertainty. Please assist us with the question(s) below: Coding Question(s): ANEMIA WITH GASTROINTESTAL HEMORRHAGE IS DOCUMENTED WITH IN THE RECORD CAN YOU PLEASE SPECIFY THE TYPE OF ANEMIA IF KNOWN BELOW. Examples are: (x ) Acute blood loss anemia ( ) Chronic blood loss anemia ( ) Anemia, unspecified or other ( ) Other: (please specify) ( ) Unable to determine Thank you Melody Rapp
== END 2017-08-13 12:25 | disposition home or self-care (01) | DRG 377 ==
LOC: C.EDB 13:20 → C.2T 16:24 → ENRESERV 16:43 → C.MED 08-11 18:09
PROVIDERS: ADMIT Family Medicine; ATTEND Internal Medicine
PROC: 0DB68ZX Excision of Stomach, Via Natural or Artificial Opening Endoscopic, Diagnostic (ICD-10-PCS; principal; 2017-08-11 10:18)
DX: K92.2 Gastrointestinal hemorrhage, unspecified (principal); K85.90 Acute pancreatitis without necrosis or infection, unspecified; D62 Acute posthemorrhagic anemia; F17.200 Nicotine dependence, unspecified, uncomplicated; Z82.49 Family history of ischemic heart disease and other diseases of the circulatory system; Z79.1 Long term (current) use of non-steroidal anti-inflammatories (NSAID); E86.0 Dehydration; D72.829 Elevated white blood cell count, unspecified; M54.5 Low back pain

== ENCOUNTER 2018-07-28 09:03 | Observation (INO) ==
--- NOTE | 2018-07-28 09:40 | Emergency Department Note ---
History of Present Illness General Chief complaint: Hip Pain Stated complaint: fall/ L hip pain Source: patient and EMS Mode of arrival: EMS Limitations: no limitations History of Present Illness Maximum Pain Intensity: 5 This 63-year-old white male presents to the ED by ALS ambulance after falling yesterday in his driveway. He was getting out of his pickup truck and slipped on the ice, falling directly on his left hip. He was unable to ambulate. He did crawl into the house. He thought the pain would get better today, but it has not. He has been unable to weight-bear on the left leg. His pain has not been controlled. He called the ambulance service this morning and they found him on his bedroom floor, unable to weight-bear on the left leg. No prior history of significant hip pain. No prior history of hip injury. No numbness or tingling. He did require morphine 10 mg IV in route. He does not complain of back pain. No knee pain or ankle pain. He points to the greater trochanter as the area of worst discomfort. Home Medications Home Medications Medication Instructions Recorded Confirmed Type pantoprazole 40 mg PO DAILY 07/28/18 07/28/18 History Allergies Allergy/AdvReac Type Severity Reaction Status Date / Time No Known Allergies Allergy Unverified 07/28/18 11:05 Past Med/Surg History Medical History Alcohol use disorder, mild, in controlled environment Tobacco abuse History of GI bleed GERD (gastroesophageal reflux disease) No significant past surgical history Surgical History No pertinent past surgical history Family History Other No pertinent family history Social History Current Living Situation: Spouse Other Information That Helps Us Care for You: No Feels Safe at Home: Yes Safety Concerns: Feels Safe At This Time Smoking Status: Current every day smoker Tobacco Type: cigarettes Cigarettes per Day: 10 Do You Dip or Chew Tobacco: No Second Hand Exposure: No Tobacco Cessation Education Requested by Patient: No Hx Alcohol Use: Yes Alcohol type: beer Alcohol Intake Frequency: 0-2 drinks per day Hx Substance Use: No Beliefs That Will Affect Care: None Preferred Language: Maltese Communication Ability: Effective Hardscape Foreman Required: No Review of Systems A total of 10 systems reviewed and were otherwise negative Physical Exam Vital Signs Vital Signs - 24 hr 07/28/18 09:00 07/28/18 10:56 07/28/18 13:30 Temperature 36.7 C Temperature Source Oral Sepsis Recent Fever Within 48 Hours No Sepsis New/Unexplained Change in Mental Status No Sepsis Action Taken by Nursing No Action Required Pulse Rate 75 Pulse Rate [Left Finger] Pulse Rate [Radial] 64 71 Respiratory Rate 18 18 18 Respiratory Effort / Characteristics Non-Labored Non-Labored Respiratory Depth Normal Normal Respiratory Pattern Blood Pressure 145/88 H Blood Pressure [Left Arm] Blood Pressure [Right Arm] 119/84 143/89 H Blood Pressure Mean 107 Blood Pressure Mean [Left Arm] Blood Pressure Mean [Right Arm] 95 107 Blood Pressure Position [Left Arm] Blood Pressure Position [Right Arm] Pulse Oximetry 94 98 94 Oxygen Delivery Method Room Air Room Air 07/28/18 14:40 07/28/18 23:00 Temperature 36.6 C 36.9 C Temperature Source Oral Oral Sepsis Recent Fever Within 48 Hours Sepsis New/Unexplained Change in Mental Status Sepsis Action Taken by Nursing Pulse Rate Pulse Rate [Left Finger] 73 80 Pulse Rate [Radial] Respiratory Rate 16 16 Respiratory Effort / Characteristics Non-Labored Spontaneous Respiratory Depth Normal Respiratory Pattern Regular Blood Pressure Blood Pressure [Left Arm] 132/87 Blood Pressure [Right Arm] 126/84 Blood Pressure Mean Blood Pressure Mean [Left Arm] 102 Blood Pressure Mean [Right Arm] 98 Blood Pressure Position [Left Arm] Lying Blood Pressure Position [Right Arm] Lying Pulse Oximetry 96 93 Oxygen Delivery Method Room Air Room Air General: Well-developed, well-nourished, elderly white male in no acute distress. Obvious discomfort. Laying on a bed. Alert and oriented Skin: Warm and dry with good turgor. No rashes or lesions. No ecchymosis or erythema. The patient is not diaphoretic. No abrasions. Heart: Heart RRR. No MGR. Peripheral pulses are 2+. Lungs: Lungs are clear to auscultation. No crackles rhonchi or wheezing. Good air movement. The patient is able to take a deep breath. Abdomen: Abdomen was inspected, auscultated, and palpated. Bowel sounds present x 4. Soft, nontender to palpation. No hepato-splenomegaly. No masses noted. No rebound. Musculoskeletal: There is no obvious asymmetry or deformity. No external rotation deformity or leg length inequality. No shortening. Left knee is slightly flexed for comfort. He has no significant discomfort with logrolling of the left hip. He does complain of lateral hip pain with passive hip flexion and extension. He has focal pain with palpation over the greater trochanter, IT band, and anterior flexion crease. No pain with palpation over his lumbar spine, SI joint, or gluteal muscle. No pain with palpation over the knee or ankle. Neurologic: Gross sensation is intact across the lower extremities by soft touch. Peripheral pulses are 2+. Course Administered Medications Acetaminophen (Tylenol) 650 mg PO Q4H PRN PRN Reason: pain/fever Stop: 08/27/18 14:34 Last Admin: 07/29/18 05:32 Dose: 650 mg Admin: 07/29/18 00:51 Dose: 650 mg Heparin Sodium (Porcine) (Heparin Sodium (Porcine)) 5,000 units SQ Q8 MERCEDEZ Stop: 08/27/18 14:34 Last Admin: 07/29/18 05:29 Dose: 5,000 units Admin: 07/28/18 22:15 Dose: 5,000 units Admin: 07/28/18 15:56 Dose: 5,000 units Oxycodone HCl (Roxicodone Immediate Rel) 5 mg PO Q6H PRN PRN Reason: Pain Stop: 08/11/18 14:34 Last Admin: 07/29/18 05:32 Dose: 5 mg Admin: 07/28/18 23:59 Dose: 5 mg Admin: 07/28/18 19:25 Dose: 5 mg Discontinued Medications Influenza Virus Vaccine (Fluzone High-Dose Pf) 0.5 ml IM .ONCE ONE Stop: 07/28/18 14:46 Last Admin: 07/28/18 20:11 Dose: 0.5 ml Oxycodone/Acetaminophen (Percocet 5mg/325mg) 2 tab PO NOW STA Stop: 07/28/18 12:44 Last Admin: 07/28/18 12:55 Dose: 2 tab Pneumococcal Polyvalent Vaccine (Pneumovax-23) 25 mcg IM .ONCE ONE Stop: 07/28/18 14:46 Last Admin: 07/28/18 20:08 Dose: 25 mcg Medical Decision Making Differential Diagnosis Fracture, contusion, dislocation, and radicular pain were considered among others Medical Records Attestation: I reviewed the patient's medical records. Home Medications Current Medication List: was personally reviewed by me Laboratory Data Attestation: I reviewed the patient's lab results. CBC and PRP obtained today were unremarkable. Result diagrams: 07/28/18 08:19 07/28/18 08:19 Lab Results 07/28/18 07/28/18 07/28/18 Range/Units 08:19 08: 08:19 WBC 11.38 H (4.8-10.8) K/uL RBC 4.67 L (4.7-6.1) M/uL Hgb 14.9 (14.0-18.0) g/dL Hct 43.6 (42-52) % MCV 93.4 (80-100) fL MCH 31.9 (25-34) pg MCHC 34.2 (32-36) g/dL RDW Std Deviation 48.3 H (36.4-46.3) fL RDW Coeff of Roberta 14.3 (11.5-14.5) % Plt Count 319 (130-400) K/uL MPV 9.1 (7.4-10.4) fL Immature Gran % (Auto) 0.2 % Neut % (Auto) 75.0 % Lymph % (Auto) 13.6 % [place] % (Auto) 9.7 % Eos % (Auto) 1.2 % Baso % (Auto) 0.3 % Immature Gran # (Auto) 0.02 (0.00-0.02) K/uL Neut # (Auto) 8.54 H (1.4-6.5) K/uL Lymph # (Auto) 1.55 (1.2-3.4) K/uL [place] # (Auto) 1.10 H (0.11-0.59) K/uL Eos # (Auto) 0.14 (0-0.5) K/uL Baso # (Auto) 0.03 (0-0.2) K/uL PT Cancelled INR Cancelled APTT Cancelled PTT Ratio Cancelled Sodium 136 (136-145) mmol/L Potassium 4.4 (3.5-5.1) mmol/L Chloride 106 (98-107) mmol/L Carbon Dioxide 22 (21-32) mmol/L Anion Gap 9.0 (3-11) BUN 12 (7-18) mg/dl Creatinine 1.11 (0.6-1.4) mg/dl Est Cr Clr Drug Dosing Not Reportable Est GFR ( Amer) 80.3 Est GFR (Non-Af Amer) 69.3 BUN/Creatinine Ratio 10.9 (10-20) Glucose 105 H (70-99) mg/dl Calcium 8.8 (8.5-10.1) mg/dl 07/28/18 Range/Units 16:24 WBC (4.8-10.8) K/uL RBC (4.7-6.1) M/uL Hgb (14.0-18.0) g/dL Hct (42-52) % MCV (80-100) fL MCH (25-34) pg MCHC (32-36) g/dL RDW Std Deviation (36.4-46.3) fL RDW Coeff of Roberta (11.5-14.5) % Plt Count (130-400) K/uL MPV (7.4-10.4) fL Immature Gran % (Auto) % Neut % (Auto) % Lymph % (Auto) % [place] % (Auto) % Eos % (Auto) % Baso % (Auto) % Immature Gran # (Auto) (0.00-0.02) K/uL Neut # (Auto) (1.4-6.5) K/uL Lymph # (Auto) (1.2-3.4) K/uL [place] # (Auto) (0.11-0.59) K/uL Eos # (Auto) (0-0.5) K/uL Baso # (Auto) (0-0.2) K/uL PT 10.4 INR 1.0 APTT 27.8 PTT Ratio 1.1 Sodium (136-145) mmol/L Potassium (3.5-5.1) mmol/L Chloride (98-107) mmol/L Carbon Dioxide (21-32) mmol/L Anion Gap (3-11) BUN (7-18) mg/dl Creatinine (0.6-1.4) mg/dl Est Cr Clr Drug Dosing Est GFR ( Amer) Est GFR (Non-Af Amer) BUN/Creatinine Ratio (10-20) Glucose (70-99) mg/dl Calcium (8.5-10.1) mg/dl Imaging Data Attestation: I personally reviewed and interpreted this imaging study as follows : Radiologist's Impression: Radiographic imaging obtained today of the pelvis and left hip was reviewed by me and read by radiology. No evidence for fracture. Due to patient's level of pain and inability to ambulate, CT scan imaging of the left hip was obtained. This was read by radiology as nondistracted fracture seen through the anterior and medial perkins of the left acetabulum. Fracture lucency extends superiorly into the iliac wing. No additional fracture is identified. The proximal femur is intact. There is intramuscular hemorrhage identified within the left obturator internus. There is also a small amount of adjacent intrapelvic extraperitoneal hemorrhage. Blood Pressure Blood Pressure Disposition: elevated BP felt to be situational MDM Narrative Patient was evaluated in C3. IV was established by the ambulance service. Lab work and x-ray imaging of the left hip and pelvis was obtained. Due to the patient's pain and inability to ambulate, CT scan imaging of the left hip was obtained. This confirmed acetabular fracture with extension to the iliac wing. Patient was given 2 tablets of Percocet in addition to the morphine he received in the ambulance. I did speak with Dr. Galindo from orthopedics regarding this patient. He recommended hospitalist admission with orthopedic consultation. I did speak with the [facility] hospitalist group. They did agree to bring the patient in for observation. He will likely need physical therapy and education using a walker. I do not think he is safe to return home without this, and he may require further IV medication for pain management. Patient did remain stable while in the ED. Impression & Plan Acetabulum fracture, left Discharge Plan Visit Data *Final* Discharge Date/Time: 07/28/18 14:20 Chief Complaint: Hip Pain Stated Complaint: fall/ L hip pain ED Provider: Joss Harris ED Midlevel Provider: Michael Okeefe Discharge Problem: Acetabulum fracture, left Patient Disposition: Admitted As Inpatient Discharge Instructions Interventions: ED Discharge Assessment Last Done: 07/28/18 14:20
[2018-07-28 09:46] LABS: Basophils # (auto) 0.03 K/uL (0-0.2); Basophils % (auto) 0.3 %; Eosinophils # (auto) 0.14 K/uL (0-0.5); Eosinophils % (auto) 1.2 %; Hematocrit (blood only) 43.6 % (42-52); Hemoglobin 14.9 g/dL (14.0-18.0); Immature Granulocytes # (auto) 0.02 K/uL (0.00-0.02); Immature Granulocytes % (auto) 0.2 %; Lymphocytes # (auto) 1.55 K/uL (1.2-3.4); Lymphocytes % (auto) 13.6 %; Mean Corpuscular Hgb Conc 34.2 g/dL (32-36); Mean Corpuscular Volume 93.4 fL (80-100); Mean Platelet Volume 9.1 fL (7.4-10.4); Monocytes % (auto) 9.7 %; Neutrophils # (auto) 8.54 K/uL (1.4-6.5); Platelet Count 319 K/uL (130-400); RDW Coefficient of Variation 14.3 % (11.5-14.5); RDW Standard Deviation 48.3 fL (36.4-46.3); Red Blood Count 4.67 M/uL (4.7-6.1); White Blood Count 11.38 K/uL (4.8-10.8)
[2018-07-28 09:53] LABS: BUN Creatinine Ratio 10.9 (10-20); Blood Urea Nitrogen 12 mg/dl (7-18); Calcium 8.8 mg/dl (8.5-10.1); Carbon Dioxide 22 mmol/L (21-32); Chloride 106 mmol/L (98-107); Est GFR (African American) 80.3; Est GFR (Non-African American) 69.3; Glucose 105 mg/dl (70-99); Potassium 4.4 mmol/L (3.5-5.1); Sodium 136 mmol/L (136-145)
--- NOTE | 2018-07-28 10:12 | XRay Report ---
SINGLE VIEW PELVIS; 2 VIEWS LEFT HIP CLINICAL HISTORY: Fall with left hip pain. FINDINGS: An AP view of the pelvis with AP and frog-leg views of left hip are correlated with pelvic CT dated 08/10/2017. The skeletal structures are osteopenic. There is no radiographic evidence of fract ure involving the hips or bony pelvis. Mild arthritic change and joint space narrowing is seen in the hips, right greater than left. Sclerotic degenerative change is noted in the sacroiliac joints. The overlying soft tissues are normal in appearance. Small phleboliths are observed in the pelvis. There is no evidence of bowel obstruction. IMPRESSION: There is no radiographic evidence of acute fracture involving the hips or bony pelvis. Electronically signed by: Esau Wall M.D. 07/28/2018 10:10 AM
--- NOTE | 2018-07-28 11:51 | CT Scan Report ---
CT SCAN OF THE LEFT HIP WITHOUT IV CONTRAST CLINICAL HISTORY: Fall with left hip pain. COMPARISON STUDY: Radiographs of left hip dated 07/28/2018. Pelvic CT dated 08/10/2017. TECHNIQUE: CT scan of the left hip is performed from the bony pelvis to the femoral shaft. Images are reviewed in the axial, sagittal, and coronal planes. IV contrast was not administered for this exami nation. A dose lowering technique was utilized adhering to the principles of ALARA. CT DOSE: 395.28 mGy.cm FINDINGS: The skeletal structures are osteopenic. There is nondistracted fracture seen involving the anterior and medial perkins of the left acetabulum. Fracture extends superiorly into the left iliac win g. No additional fracture is identified. The left proximal femur is intact, as is the left pubic ring . There is intramuscular hemorrhage involving the left obturator internus with trace adjacent intrape lvic extraperitoneal hemorrhage. There is a small joint effusion/bursal fluid around the left hip. Th ere is no left inguinal or left pelvic sidewall adenopathy. The imaged portions of the bladder are no rmal in appearance. Diverticula are noted in the partially imaged sigmoid colon. IMPRESSION: 1. There is nondistracted fracture seen through the anterior and medial perkins of the left acetabulum. Fracture lucency extends superiorly into the iliac wing. 2. No additional fracture is identified. The proximal femur is intact. 3. There is intramuscular hemorrhage identified within the left obturator internus. There is also a s mall amount of adjacent intrapelvic extraperitoneal hemorrhage. Electronically signed by: Esau Wall M.D. 07/28/2018 11:49 AM
[2018-07-28] MEDS ORDERED: OXYCODONE/ACETAMINOPHEN 5mg/325mg TAB PO STA (12:43)
[2018-07-28] MEDS ORDERED: ALUMINUM/MAGNESIUM SUSP 30 ML UDC PO PRN (14:35)
[2018-07-28] MEDS ORDERED: POLYETHYLENE (MIRALAX) 17 GM PACK PO PRN (14:35)
[2018-07-28] MEDS ORDERED: ONDANSETRON INJ 2 MG/ML 2 ML VIAL IV PRN (14:35)
[2018-07-28] MEDS ORDERED: MAGNESIUM HYDROXIDE SUSP 30 ML UDC PO PRN (14:35)
--- NOTE | 2018-07-28 14:36 | History & Physical Report ---
Date of Service July 28, 2018 Assessment & Plan (1) Nondisplaced fracture of left acetabulum: Secondary to a mechanical fall Orthopedic consult requested Nonweightbearing on the left PT/OT consult requested for training with walker Outpatient follow-up with [facility] Patient currently follows with Dr. Biggs DVT prophylaxis with heparin subcu while inpatient (2) GERD (gastroesophageal reflux disease): Pantoprazole 40 mg p.o. daily (3) History of GI bleed: No recent history. Continue p.o. pantoprazole daily (4) Tobacco abuse: Smoking cessation consult placed Patient refuses nicotine patch (5) Alcohol use disorder, mild, in controlled environment: 2 beers daily No indication for AWSS (6) DVT prophylaxis: Heparin 5000 units subcutaneously every 8 hours SCDs Teds Treatment plan reviewed with Dr. Rivera. Please refer to her addendum for further recommendations. History of Present Illness Chief Complaint: Status post fall with left acetabular fracture nondisplaced Primary Care Provider: Daniel Corona [facility] in [place] This is a 63-year-old male that slipped and fell out of his car yesterday falling on his left hip. He had increasing pain overnight and presented today for evaluation. He was found to have a left nondisplaced acetabular fracture. Patient was seen by the emergency department PA-C who spoke with Dr. Galindo of [facility] who reportedly stated the patient should be nonweightbearing and follow-up as an outpatient. Patient does currently follow with [facility] and is scheduled to see Dr. Sea Biggs on Monday morning for evaluation of osteoarthritis of his right hip. Patient also states that he has rotator cuff problems on the right shoulder and follows with [facility] for that as well. At this point the patient is being admitted for observation status for pain control and therapy with physical therapy as well as occupational therapy for training with walker so that he can be safely discharged home pending outpatient orthopedic follow-up. The patient denies any syncope or presyncope. He had no dizziness or lightheadedness. He does drink 2 Duran lite beers per day. And states that he had 2 beers prior to his fall. He denies any inebriation leading to falling. He has a 1/2 pack/day smoker for most of his adult life. 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 The patient denies any prior history of thromboembolic disease, blood dyscrasia , pulmonary disease, heart disease. He does have a history of gastric ulcer with bleeding several years ago and has chronically been on pantoprazole 40 mg p.o. daily with no further problems. He denies any other significant health condition. He has no other acute complaints. Allergies Allergy/AdvReac Type Severity Reaction Status Date / Time No Known Allergies Allergy Unverified 07/28/18 11:05 Home Medications Home Medications Medication Instructions Recorded Confirmed Type pantoprazole 40 mg PO DAILY 07/28/18 07/28/18 History Past Med/Surg History Medical History Alcohol use disorder, mild, in controlled environment Tobacco abuse History of GI bleed GERD (gastroesophageal reflux disease) No significant past surgical history Surgical History No pertinent past surgical history Family History Other No pertinent family history Social History Current Living Situation: Spouse Other Information That Helps Us Care for You: No Feels Safe at Home: Yes Safety Concerns: Feels Safe At This Time Smoking Status: Current every day smoker Tobacco Type: cigarettes Cigarettes per Day: 10 Do You Dip or Chew Tobacco: No Second Hand Exposure: No Tobacco Cessation Education Requested by Patient: No Hx Alcohol Use: Yes Alcohol type: beer Alcohol Intake Frequency: 0-2 drinks per day Hx Substance Use: No Beliefs That Will Affect Care: None Preferred Language: Ukrainian Communication Ability: Effective Sr. Merchandise Planner Required: No Review of Systems All systems reviewed & are unremarkable except as noted in HPI & below Physical Exam 2 Vital Signs (Past 24 Hours): Last Vital Signs Temp 36.7 C 07/28/18 09:00 Pulse 71 07/28/18 13:30 Resp 18 07/28/18 13:30 BP 143/89 H 07/28/18 13:30 Pulse Ox 94 07/28/18 13:30 Physical Exam: GENERAL : No acute distress EYES: No icterus, gaze conjugate. Pupils equal and reactive to light NOSE: No evidence of epistaxis. MOUTH: No lesions or candidiasis. NECK: Supple. No appreciation of carotid bruits or stridor LUNGS: CTA B/L, no wheezes, rales or rhonchi. HEART: Regular, rate controlled ABDOMEN: Soft, NT, ND, BS Present EXTREMITIES: No LE edema, pedal pulses intact. Focal tenderness over left hip , no evidence of long bone deformity NEURO: A&OX3 Results & Data Diagnostic Findings CT SCAN OF THE LEFT HIP WITHOUT IV CONTRAST CLINICAL HISTORY: Fall with left hip pain. COMPARISON STUDY: Radiographs of left hip dated 07/28/2018. Pelvic CT dated 2017. TECHNIQUE: CT scan of the left hip is performed from the bony pelvis to the femoral shaft. Images are reviewed in the axial, sagittal, and coronal planes. IV contrast was not administered for this examination. A dose lowering technique was utilized adhering to the principles of ALARA. CT DOSE: 395.28 mGy.cm FINDINGS: The skeletal structures are osteopenic. There is nondistracted fracture seen involving the anterior and medial perkins of the left acetabulum. Fracture extends superiorly into the left iliac wing. No additional fracture is identified. The left proximal femur is intact, as is the left pubic ring. There is intramuscular hemorrhage involving the left obturator internus with trace adjacent intrapelvic extraperitoneal hemorrhage. There is a small joint effusion /bursal fluid around the left hip. There is no left inguinal or left pelvic sidewall adenopathy. The imaged portions of the bladder are normal in appearance. Diverticula are noted in the partially imaged sigmoid colon. IMPRESSION: 1. There is nondistracted fracture seen through the anterior and medial perkins of the left acetabulum. Fracture lucency extends superiorly into the iliac wing. 2. No additional fracture is identified. The proximal femur is intact. 3. There is intramuscular hemorrhage identified within the left obturator internus. There is also a small amount of adjacent intrapelvic extraperitoneal hemorrhage. Electronically signed by: Esau Wall M.D. 07/28/2018 11:49 AM Code Status & VTE Plan Code Status Full code: Level 1 VTE Prophylaxis Plan VTE Prophylaxis will be ordered: Yes Supervising Physician Co-Signing Physician Notes I have seen and examined the patient and have discussed the case with the provider above. I agree with the assessment and plan as stated. DO Miguel
[2018-07-28] MEDS ORDERED: INFLUENZA VACCINE HIGH DOSE 65+ 0.5 ML SYR IM ONE (14:45)
[2018-07-28] MEDS ORDERED: PNEUMOCOCCAL POLYSACCHARIDES 25 MCG/0.5 ML VIAL/SYR IM ONE (14:45)
[2018-07-28] MEDS ORDERED: PNEUMOCOCCAL ADMINISTRATION CHARGE ONE (14:45)
[2018-07-28] MEDS ORDERED: INFLUENZA ADMINISTRATION CHARGE ONE (14:45)
[2018-07-28] MEDS: HEPARIN SOD 5,000 UNIT/0.5 ML VIAL SQ SCH ×2 (15:56→22:15)
[2018-07-28 17:12] LABS: Partial Thromboplastin Ratio 1.1; Partial Thromboplastin Time 27.8 Seconds (21.0-31.0); Prothrombin Time 10.4 Seconds (9.0-12.0)
[2018-07-28] MEDS: OXYCODONE HCL IR 5 MG TAB (IMMEDIATE RELEASE) PO PRN ×2 (19:25→23:59)
[2018-07-29] MEDS: ACETAMINOPHEN 325 MG TAB PO PRN ×3 (00:51→12:55)
[2018-07-29] MEDS: HEPARIN SOD 5,000 UNIT/0.5 ML VIAL SQ SCH ×2 (05:29→14:21)
[2018-07-29] MEDS: OXYCODONE HCL IR 5 MG TAB (IMMEDIATE RELEASE) PO PRN ×3 (05:32→15:03)
[2018-07-29 07:08] LABS: Basophils # (auto) 0.04 K/uL (0-0.2); Basophils % (auto) 0.4 %; Eosinophils # (auto) 0.21 K/uL (0-0.5); Eosinophils % (auto) 2.3 %; Hematocrit (blood only) 41.7 % (42-52); Hemoglobin 14.4 g/dL (14.0-18.0); Immature Granulocytes # (auto) 0.01 K/uL (0.00-0.02); Immature Granulocytes % (auto) 0.1 %; Lymphocytes # (auto) 2.53 K/uL (1.2-3.4); Lymphocytes % (auto) 28.1 %; Mean Corpuscular Hgb Conc 34.5 g/dL (32-36); Mean Platelet Volume 8.6 fL (7.4-10.4); Monocytes # (auto) 0.89 K/uL (0.11-0.59); Monocytes % (auto) 9.9 %; Neutrophils # (auto) 5.32 K/uL (1.4-6.5); Neutrophils % (auto) 59.2 %; Platelet Count 245 K/uL (130-400); RDW Coefficient of Variation 14.3 % (11.5-14.5); Red Blood Count 4.39 M/uL (4.7-6.1)
--- NOTE | 2018-07-29 09:51 | Consultation Report ---
DATE OF CONSULTATION: 07/29/2018 ORTHOPEDIC SURGERY CONSULTATION Special attention to left acetabular fracture. HISTORY OF PRESENT ILLNESS: This is a 63-year-old male well known to Dr. Biggs from previous right shoulder surgery as well as right hip arthritis which is currently being treated for. Camilo sustained a fall while getting out of a car yesterday as a mechanical fall when he slipped on ice, fall directly on to the left hip region, complaints of pain in the left hip with inability to bear weight. He is admitted to the hospitalist service for diagnosis of acetabular fracture. PAST MEDICAL HISTORY: GERD, history of GI bleed, history of tobacco abuse. SOCIAL HISTORY: Does smoke, drinks 2 beers a day. ALLERGIES: No known drug allergies. MEDICATIONS: Pantoprazole 40 mg daily. PHYSICAL EXAMINATION: Left hip exam shows pain with log roll of the hip. He has no open wounds. No significant ecchymosis over the lateral aspect of the hip. He can flex and extend the knee and the ankle, but exam is limited secondary to discomfort. Foot is warm and well perfused with 2+ capillary refill. IMAGING DATA: Review of CAT scan shows a nondisplaced fracture through the anterior wall of left acetabulum as well as the medial wall. Fracture does extend proximally, but is a nondisplaced. The joint is well aligned. 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 Plain radiographs do show appropriate alignment of the hip. ASSESSMENT: A 63-year-old male with: 1. Left acetabular fracture, nondisplaced. PLAN: I discussed findings and treatment. Recommendation will be nonweightbearing with walker. May continue heparin 5000 units subQ every 8 hours for DVT prophylaxis with TEDs and SCDs. I feel likely that he will be able to be treated definitively without an operation. Upon discharge from the hospital, he will see Dr. Biggs for a followup and definitive management. We will sign off at this time. Please call with further questions or concerns. Of note, the patient has an appointment scheduled with Monday for Dr. Biggs for right hip arthritis. We will cancel his appointment for now.
--- NOTE | 2018-08-02 11:55 | Discharge Summary ---
Date of Service August 02, 2018 Admission HPI Per Admitting Provider This is a 63-year-old male that slipped and fell out of his car yesterday falling on his left hip. He had increasing pain overnight and presented today for evaluation. He was found to have a left nondisplaced acetabular fracture. Patient was seen by the emergency department KATHY who spoke with Dr. Galindo of [facility] who reportedly stated the patient should be nonweightbearing and follow-up as an outpatient. Patient does currently follow with [facility] and is scheduled to see Dr. Sea Biggs on Monday morning for evaluation of osteoarthritis of his right hip. Patient also states that he has rotator cuff problems on the right shoulder and follows with [facility] for that as well. At this point the patient is being admitted for observation status for pain control and therapy with physical therapy as well as occupational therapy for training with walker so that he can be safely discharged home pending outpatient orthopedic follow-up. The patient denies any syncope or presyncope. He had no dizziness or lightheadedness. He does drink 2 Duran lite beers per day. And states that he had 2 beers prior to his fall. He denies any inebriation leading to falling. He has a 1/2 pack/day smoker for most of his adult life. 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 The patient denies any prior history of thromboembolic disease, blood dyscrasia , pulmonary disease, heart disease. He does have a history of gastric ulcer with bleeding several years ago and has chronically been on pantoprazole 40 mg p.o. daily with no further problems. He denies any other significant health condition. He has no other acute complaints. Admission Exam Per Admitting Provider GENERAL : No acute distress EYES: No icterus, gaze conjugate. Pupils equal and reactive to light NOSE: No evidence of epistaxis. MOUTH: No lesions or candidiasis. NECK: Supple. No appreciation of carotid bruits or stridor LUNGS: CTA B/L, no wheezes, rales or rhonchi. HEART: Regular, rate controlled ABDOMEN: Soft, NT, ND, BS Present EXTREMITIES: No LE edema, pedal pulses intact. Focal tenderness over left hip , no evidence of long bone deformity NEURO: A&OX3 Principal Diagnosis Left hip fracture Discharge Data Allergies Allergy/AdvReac Type Severity Reaction Status Date / Time No Known Allergies Allergy Unverified 07/28/18 11:05 Consultations 07/28/18 12:43 ED Decision to Admit Stat 07/28/18 14:35 Consult Case Management - Discharge Planning Routine Consult Orthopedic Surgery Routine Ordered Studies 07/28/18 11:07 CT hip LT wo con Stat Hospital Course (1) Nondisplaced fracture of left acetabulum: (2) GERD (gastroesophageal reflux disease): (3) History of GI bleed: (4) Tobacco abuse: (5) Alcohol use disorder, mild, in controlled environment: 63-year-old man who was admitted to the hospital status post left hip fracture from a mechanical fall. Hip CT was done without contrast revealing a non-distracted fracture seen through the anterior and medial perkins of the left acetabulum. Fracture lucency extended superiorly into the iliac wing. There was also an intramuscular hemorrhage identified within the left obturator internus. There was also a small amount of adjacent intrapelvic extraperitoneal hemorrhage. Orthopedics was consulted and recommended nonweightbearing status and follow-up as an outpatient. PT and OT were consulted to assist patient with training on a walker, prescribed at discharge. Pain was controlled with narcotics. H&H was stable the following day. He remained hemodynamically stable and afebrile throughout the hospitalization. He was discharged in stable condition with no concerning findings on physical exam aside from limited mobility of the left leg. Left lower extremity was neurovascularly intact. He was tolerating p.o., mentating at baseline was discharged in stable condition with close orthopedic and primary care follow-up as outpatient. Total Time Total Time Spent Total Time Spent (In Minutes): 60 Total Time Includes: Examination of the Patient, Discharge Planning, Medication Reconciliation and Communication With Other Providers Discharge Plan Discharge Items Patient Disposition: Home - Self-Care Reason For Visit: LEFT HIP FRACTURE Discharge Diagnosis: Left hip fracture Condition: Good Discharge Goals: Decrease discomfort and Increase independence Activity: As commented below Activity Comment: nonweight bearing with a walker until cleared by physician Non-emergency contact: Primary Care Provider Call non-emergency contact if: you have any medication questions, your symptoms worsen, your pain is not controlled, your pain is worsening, your pain is unusual for you, your pain is concerning for you and you have a fever Follow-up/Referrals: Daniel Corona [Primary Care Provider] - Sea Biggs MD [Surgeon] - Diet: Regular Addtl Provider Instructions: Please take all medications as instructed on discharge list below. It is recommended that you follow up with Dr. Biggs for this issue in two weeks. Cont to use the walker and remain nonweight bearing on the hip as much as possible. It is recommended that you follow-up with your primary care physician within one week. It was a pleasure taking care of you! Please call if you have any questions or problems. You can reach a [facility] hospitalist on duty at [facility] 24 hours a day by calling [phone]. Take care of yourself. Jessica Rivera, [facility] Prescriptions: New oxycodone 5 mg Tablet 5 mg PO Q6H PRN (Reason: pain) Qty: 10 RF: 0 ibuprofen 800 mg tablet 800 mg PO Q8H PRN (Reason: pain) Qty: 60 RF: 0 Continue pantoprazole 40 mg Tablet,Delayed Release (Dr/Ec) 40 mg PO DAILY RF: 0 Stand-Alone Forms: My [facility], [facility] Pain [facility] Discharge Orders: Discharge Order (Routine); Ordered 07/29/18 Ordered By: Jessica Rivera Admission Data Admit Date/Time: 07/28/18 14:04 Attending Provider: Jessica Rivera Admit Provider: Jessica Rivera Primary Care Provider: Daniel Corona Other Providers: Tristan Galindo Sabrina M Service: Medical Other Interventions: Discharge Summary Assessment (RN) Last Done: 07/29/18 14:24 DC Date/Time DO NOT enter until pt leaves facility: 07/29/18 15:09
== END 2018-07-29 15:09 | disposition home or self-care (01) ==
LOC: ED 09:03 → 3E 09:03